=== PATIENT | female | born 1945 | race Caucasian/White ===

== ENCOUNTER 2017-09-02 01:03 | Inpatient (IN) | payer MEDICARE, BC, OTHER ==
[2017-09-02 02:40] VITALS: BP 155/72; PULSE 70; RESP 18; TEMP 97.6; O2SAT 94
[2017-09-02] MEDS ORDERED: diphenhydrAMINE HCL 50 MG/ML VIAL - HS PRN IM (03:15)
[2017-09-02] MEDS ORDERED: IBUPROFEN 600 MG TAB PO PRN (03:15)
[2017-09-02] MEDS ORDERED: diphenhydrAMINE HCL 50 MG CAP - HS PRN PO (03:15)
[2017-09-02 05:52] VITALS: BP 141/69; PULSE 78; RESP 18; TEMP 98.3; O2SAT 96
--- NOTE | 2017-09-02 11:20 | PD.CONS ---
[facility] By Dr. Meneses Reason for Consult Medical management Primary Care Physician Non-Staff Diagnoses: History of Present Illness This is a 72-year-old female who was admitted due to depression to inpatient psychiatry. [facility] consulted for medical management. Patient does not know any of her medical conditions. A very poor historian. She stated that she came from [place] on August 17 with 2 bottles of vodka. When I asked patient if she drinks alcohol everyday she stated no that she just brought it with her but does not usually drink alcohol. When I tried to get more information from patient if she had any medical conditions or why she was here she stated to ask her brother and that he will come soon. She had pain prior but she is was able to walk here so she is no longer in pain. I told me location. She is able to tell me her name. Unable to do review of system secondary to altered mental status. Past Family Social History Allergies: Coded Allergies: Penicillins (Verified Allergy, Severe, 09/02/17) iodine (Verified Allergy, Severe, 09/02/17) moxifloxacin (Verified Allergy, Severe, 09/02/17) Past Medical History Unable to obtain due to patient psychiatric disorder Past Surgical History Unable to obtain due to psychiatric disorder Reported Medications Unable to obtain due to psychiatric disorder. There is no listed home medication. Will put an order for patient's nurse to call pharmacy to obtain her medication list. Active Ordered Medications Current Medications Ibuprofen (Motrin) 600 mg Q6H PRN PO PAIN; Start 09/02/17 at 03:15 Diphenhydramine HCl (Benadryl) 50 mg HS PRN PO INSOMNIA; Start 09/02/17 at 03: 15; Status Future Hold Diphenhydramine HCl (Benadryl Inj) 50 mg HS PRN IM INSOMNIA; Start 09/02/17 at 03:15; Status Future Hold Family History Unable to obtain due to to patient's psychiatric disorder Social History Unable to obtain due to patient's psychiatric disorder. She did say that she was living in [place] and came down here on August 17. Physical Exam Vital Signs Vital Signs Date Time Temp Pulse Resp B/P (MAP) Pulse Ox O2 Delivery O2 Flow Rate FiO2 09/02/17 05:52 98.3 78 18 141/69 (93) 96 1/18/18 02:40 97.6 70 18 155/72 (99 94 Physical Exam GENERAL: This is a well-nourished, well-developed patient, in no apparent distress. SKIN: No rashes, ecchymoses or lesions. Cool and dry. HEAD: Atraumatic. Normocephalic. No temporal or scalp tenderness. EYES: Pupils equal round and reactive. Extraocular motions intact. No scleral icterus. No injection or drainage. ENT: Nose without bleeding, purulent drainage or septal hematoma. Throat without erythema, tonsillar hypertrophy or exudate. Uvula midline. Airway patent. NECK: Trachea midline. No JVD or lymphadenopathy. Supple, nontender, no meningeal signs. CARDIOVASCULAR: Regular rate and rhythm without murmurs, gallops, or rubs. RESPIRATORY: Clear to auscultation. Breath sounds equal bilaterally. No wheezes , rales, or rhonchi. GASTROINTESTINAL: Abdomen soft, non-tender, nondistended. No hepato-splenomegaly , or palpable masses. No guarding. MUSCULOSKELETAL: Extremities without clubbing, cyanosis, or edema. No joint tenderness, effusion, or edema noted. No calf tenderness. Negative Homans sign bilaterally. NEUROLOGICAL: Awake and alert. Cranial nerves II through XII intact. Motor and sensory grossly within normal limits. Five out of 5 muscle strength in all muscle groups. Normal speech. Assessment and Plan Assessment and Plan 72-year-old female who was admitted due to depression Depression -Management per inpatient psychiatrist. Unable to obtain any type of history from patient. There are no medication listed in the EMR system. Patient unable to tell me her medical condition. She is clinically stable with mildly elevated blood pressure. I will obtain basic labs. Placed order for patient's nurse to try to obtain her home medication. Viky Street MD Sep 02, 2017 11:20
[2017-09-02] MEDS ORDERED: diphenhydrAMINE HCL 50 MG CAP PO PRN (11:30)
--- NOTE | 2017-09-02 11:46 | HHI.HP ---
Provisional Diagnosis Admission Date Sep 02, 2017 at 02:40 [place] I. Adjustment disorder with mixed anxiety and depressed mood f 43.23 Certification of Person's Competence To Provide Express and Informed Consent I have personally examined Melida Aguayo , a person being served at [facility] on, Sep 02, 2017 11:31. Express and informed consent means consent voluntarily given in writing, by a competent person, after sufficient explanation and disclosure of the subject matter involved to enable the person to make a knowing and willful decision without any element of force, fraud, deceit, duress, or other form of constraint or coercion. This person is 18 years of age or older, is not now known to be incompetent to consent to treatment with a guardian advocate, and does not have a health care surrogate or proxy currently making medical treatment decisions. I have found this person to be one of the following: [] Competent to provide express and informed consent, as defined above, for voluntary admission to this facility and is competent to provide express and informed consent for treatment. He/she has the consistent capacity to make well reasoned, willful, and knowing decisions concerning his or her medical or mental health treatment. The person fully and consistently understands the purpose of the admission for examination/placement and is fully capable of personally exercising all rights assured under [place] Incompetent to provide express and informed consent to voluntary admission, and this is incompetent to provide express and informed consent to treatment. The person must be transferred to involuntary status and a petition for a guardian advocate filed with the Circuit Court. [xxx] Refusing to provide express and informed consent to voluntary admission but is competent to provide express and informed consent for treatment. The person must be discharged or transferred to involuntary status. Form shall be completed within 24 hours of a person's arrival at the receiving facility and filed in the clinical record of each person: 1. Admitted on a voluntary basis 2. Permitted to provide express and informed consent to his/her own treatment 3. Allowed to transfer from involuntary to voluntary status 4. Prior to permitting a person to consent to his or her own treatment after having been previously found incompetent to consent to treatment. History of Present Illness Capacity: Lacks Capacity (patient lacks capacity to sign for admission, patient has capacity to sign for medications) Psych Chief Complaint: depression with suicidal ideation HPI Patient is a 70-year-old white female comes here under Porter act signed by tony Amaro DO dated 09/01/17 at 7:18 PM stating suicidal ideation states "I want to and drive my car into the pond like my father " the psychiatrist generated at [facility] seen Guillermo. It appears this lady was relocated about 2 weeks ago from [place] to live in a home owned by her brother locally so she may be near him to get care. It appears friends who are helped her in [place] all . Patient is in her own home appear she has some type of a confusional episode became somewhat panicky. Was brought to that ED earlier in the day was seen by psychiatrist, and recommended that her brother take her to will for voluntary admission. Instead it appears he went home to have dinner patient decompensated became more depressed threatening suicidality with some increased anxiety. She was then brought back to [facility] seen Guillermo Porter acted medically cleared and transferred here. It appears urine toxicology was negative for blood alcohol level negative at that facility. At the present time patient laying quietly in her bed on [address] nurse Pily and counselor Trinity present throughout session. Patient is alert oriented calm white female appears about her stated age. She did state she lost all her support group and [place]. Also importance she said she did not fall some time prior to that fractured her left patella leading her to be given some significant amounts of various opiates. She ran out of those and discontinued them around August 17 of this year when she moved down here to be closer to her brother. Some of this confusion depression and anxiety occurred subsequent to that. Patient denies any prior psychiatric contact hospitalizations a psychotropic medications. She denies any alcohol or drug use. Denies any physical or sexual abuse as a child and adult. She states her mother had some type of a mental illness. She states she has been twice and has no children. 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 At this time she does denies suicidality homicidality voices or visions. As mentioned she is oriented in all 4 spheres. At this time I feel patient doesn't meet criteria for further observation and assessment and also need verification of above history from patient's brother. I do not feel there is necessary at this time though to start any psychotropic medications. She does deny being depressed at this time. And her mood appears more euthymic with good range and intensity of her affect. We will have hospitalist also consult with us with this lady Hopeless to be a short stay and return her to her local home. Review of Systems Constitutional: DENIES: Diaphoretic episodes, Fatigue, Fever, Weight gain, Weight loss, Chills, Dizziness, Change in appetite, Night Sweats Endocrine: DENIES: Abnorml menstrual pattern, Heat/cold intolerance, Polydipsia , Polyuria, Polyphagia Eyes: DENIES: Blurred vision, Diplopia, Eye inflammation, Eye pain, Vision loss , Photosensitivity, Double Vision Ears, nose, mouth, throat: DENIES: Tinnitus, Hearing loss, Vertigo, Nasal discharge, Oral lesions, Throat pain, Hoarseness, Ear Pain, Running Nose, Epistaxis, Sinus Pain, Toothache, Odynophagia Respiratory: DENIES: Apneas, Cough, Snoring, Wheezing, Hemoptysis, Sputum production, Shortness of breath Cardiovascular: DENIES: Chest pain, Palpitations, Syncope, Dyspnea on Exertion , PND, Lower Extremity Edema, Orthopnea, Claudication Gastrointestinal: DENIES: Abdominal pain, Black stools, Bloody stools, Constipation, Diarrhea, Nausea, Vomiting, Difficulty Swallowing, Anorexia Genitourinary: DENIES: Abnormal vaginal bleeding, Dysmenorrhea, Dyspareunia, Sexual dysfunction, Urinary frequency, Urinary incontinence, Urgency, Hematuria , Dysuria, Nocturia, Vaginal discharge Musculoskeletal: DENIES: Joint pain, Muscle aches, Stiffness, Joint Swelling, Back pain, Neck pain Integumentary: DENIES: Abnormal pigmentation, Pruritus, Rash, Nail changes, Breast masses, Breast skin changes, Nipple discharge Hematologic/lymphatic: DENIES: Bruising, Lymphadenopathy Immunologic/allergic: DENIES: Eczema, Urticaria Neurologic: DENIES: Abnormal gait, Headache, Localized weakness, Paresthesias, Seizures, Speech Problems, Tremor, Poor Balance Psychiatric: COMPLAINS OF: Anxiety, Depression (mild mild), Suicidal Ideation ( denies) Past Psych History Psychological trauma history Denies physical or sexual abuse Violence risk - others (6 mos) Low Violence risk - self (6 mos) Low Substance Abuse History Drugs/Alcohol past 12 months Denies Past Family Social History Coded Allergies: Penicillins (Verified Allergy, Severe, 09/02/17) iodine (Verified Allergy, Severe, 09/02/17) moxifloxacin (Verified Allergy, Severe, 09/02/17) Current Medications Medications (Trade) Dose Ordered Sig/Porsche Route Start Time Stop Time Status Last Admin (Motrin) 600 mg Q6H PRN PO 09/02/17 03:15 (Benadryl) 50 mg HS PRN PO 09/02/17 03:15 Future Hold (Benadryl Inj) 50 mg HS PRN IM 09/02/17 03:15 Future Hold Family Psych History States mother had some type of mental health issues Social History Patient twice has no children Patient's Strengths (min. 2) Patient verbal label axis health care is cooperative Physical Exam He should medically cleared [facility] seen [place] seen at the present time patient resting quietly in her bed she is in no acute distress, no respiratory distress, but with some abdominal pain. He moves all 4 extremities or difficulty allow is unable to ascertain her ambulatory status with her laying in bed. We will have PT assess her Vital Signs Vital Signs Date Time Temp Pulse Resp B/P (MAP) Pulse Ox O2 Delivery O2 Flow Rate FiO2 09/02/17 05:52 98.3 78 18 141/69 (93) 96 Mental Status Examination Appearance: Appropriate Consciousness: Alert Orientation: Person, Place, Date/Time, Situation Motor Activity: Other (patient laying in bed unable to assess) Speech: Unremarkable Language: Adequate Fund of Knowledge: Adequate Attention and Concentration: Adequate Memory: Unremarkable (fair) Mood: Other (euthymic to mildly dysphoric) Affect: Other (slight decreased range and intensity) Thought Process & Associations: Intact, Disorganized (minimally) Thought Content: Appropriate Hallucination Type: None Delusion Type: None Suicidal Ideation: No (denies) Suicidal Plan: No Suicidal Intention: No (denies) Homicidal Ideation: No Homicidal Plan: No Homicidal Intention: No Insight: Adequate Judgment: Adequate Assessment & Plan Problem List: (1) Adjustment disorder with mixed anxiety and depressed mood ICD Codes: F43.23 - Adjustment disorder with mixed anxiety and depressed mood Assessment & Plan Estimated LOS: 3-5 days patient appears calm and cooperative. His overall oriented. He did need further verification from family as her mental status also. For now she does meet criteria for further assessment of the Porter act I' ll do first opinion request second opinion either from she does have capacity to sign for medications and treatment. No recommendation for medication at this time. Will have hospitalist also consulted with us Discharge Planning To return to her own home Request HC Surrog/Guard Advoc?: No Landen Meneses MD Sep 02, 2017 11:46
--- NOTE | 2017-09-02 13:56 | PD.PSY.CON ---
Provisional Diagnosis Admission Date Sep 02, 2017 at 02:40 [place] I. Adjustment disorder with mixed anxiety and depressed mood f 43.23 History of Present Illness Service Psychiatry Consult Requested By Dr. Meneses Reason for Consult Second opinion Primary Care Physician Non-Staff HPI Patient is a 70-year-old white female comes here under Porter act signed by a Rubén Amaro DO dated 09/01/17 at 7:18 PM stating suicidal ideation states "I want to and drive my car into the pond like my father " the psychiatrist generated at [facility] seen Guillermo. It appears this lady was relocated about 2 weeks ago from [place] to live in a home owned by her brother locally so she may be near him to get care. It appears friends who are helped her in [place] all . Patient is in her own home appear she has some type of a confusional episode became somewhat panicky. Was brought to that ED earlier in the day was seen by psychiatrist, and recommended that her brother take her to will for voluntary admission. Instead it appears he went home to have dinner patient decompensated became more depressed threatening suicidality with some increased anxiety. She was then brought back to [facility] seen Guillermo Porter acted medically cleared and transferred here. It appears urine toxicology was negative for blood alcohol level negative at that facility. At the present time patient laying quietly in her bed on 2500 nurse Pily and counselor Trinity present throughout session. Patient is alert oriented calm white female appears about her stated age. She did state she lost all her support group and [place]. Also importance she said she did not fall some time prior to that fractured her left patella leading her to be given some significant amounts of various opiates. She ran out of those and discontinued them around August 17 of this year when she moved down here to be closer to her brother. Some of this confusion depression and anxiety occurred subsequent to that. Patient denies any prior psychiatric contact hospitalizations a psychotropic medications. She denies any alcohol or drug use. Denies any physical or sexual abuse as a child and adult. She states her mother had some type of a mental illness. She states she has been twice and has no children. 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 At this time she does denies suicidality homicidality voices or visions. As mentioned she is oriented in all 4 spheres. At this time I feel patient doesn't meet criteria for further observation and assessment and also need verification of above history from patient's brother. I do not feel there is necessary at this time though to start any psychotropic medications. She does deny being depressed at this time. And her mood appears more euthymic with good range and intensity of her affect. We will have hospitalist also consult with us with this lady Hopeless to be a short stay and return her to her local home. The patient is a 70 year old woman, who lives alone is an Guillermo, she is , retired, she denies previous psychiatric history, she denies previous psychiatric hospitalizations, hospitalized due to suicidal ideation. Consulted to me for second opinion. My evaluation the patient is calm, cooperative, he says that she recently moved to [place] from [place] and she has been very confused. Patient says that she doesn't really remember the recent she is in the hospital. She says that she has been taking her medication as prescribed, she does not know the reason she became so confused. At this moment she denies suicidal and homicidal ideation, she denies visual and auditory hallucinations. Patient is oriented in person, just partially oriented in time and place. No agitation, no aggressive behavior reported. Review of Systems Constitutional: DENIES: Diaphoretic episodes, Fatigue, Fever, Weight gain, Weight loss, Chills, Dizziness, Change in appetite, Night Sweats Endocrine: DENIES: Abnorml menstrual pattern, Heat/cold intolerance, Polydipsia , Polyuria, Polyphagia Eyes: DENIES: Blurred vision, Diplopia, Eye inflammation, Eye pain, Vision loss , Photosensitivity, Double Vision Ears, nose, mouth, throat: DENIES: Tinnitus, Hearing loss, Vertigo, Nasal discharge, Oral lesions, Throat pain, Hoarseness, Ear Pain, Running Nose, Epistaxis, Sinus Pain, Toothache, Odynophagia Respiratory: DENIES: Apneas, Cough, Snoring, Wheezing, Hemoptysis, Sputum production, Shortness of breath Cardiovascular: DENIES: Chest pain, Palpitations, Syncope, Dyspnea on Exertion , PND, Lower Extremity Edema, Orthopnea, Claudication Gastrointestinal: DENIES: Abdominal pain, Black stools, Bloody stools, Constipation, Diarrhea, Nausea, Vomiting, Difficulty Swallowing, Anorexia Genitourinary: DENIES: Abnormal vaginal bleeding, Dysmenorrhea, Dyspareunia, Sexual dysfunction, Urinary frequency, Urinary incontinence, Urgency, Hematuria , Dysuria, Nocturia, Vaginal discharge Musculoskeletal: DENIES: Joint pain, Muscle aches, Stiffness, Joint Swelling, Back pain, Neck pain Integumentary: DENIES: Abnormal pigmentation, Pruritus, Rash, Nail changes, Breast masses, Breast skin changes, Nipple discharge Hematologic/lymphatic: DENIES: Bruising, Lymphadenopathy Immunologic/allergic: DENIES: Eczema, Urticaria Psychiatric: DENIES: Anxiety, Confusion, Mood changes, Depression, Hallucinations, Agitation, Suicidal Ideation, Homicidal Ideation, Delusions Except as stated in HPI: all other systems reviewed are Neg Past Family Social History Coded Allergies: Penicillins (Verified Allergy, Severe, 09/02/17) iodine (Verified Allergy, Severe, 09/02/17) moxifloxacin (Verified Allergy, Severe, 09/02/17) Reported Medications Metaxalone (Skelaxin) 800 Mg Tablet, 800 09/02/[address] (Nexium) 20 Mg Capdr, 20 MG PO DAILY, CAP 0 Refills 09/02/17 Ranitidine (Zantac) 150 Mg Tab, 150 MG PO BID, #60 TAB 0 Refills 09/02/17 Current Medications Medications (Trade) Dose Ordered Sig/Porsche Route Start Time Stop Time Status Last Admin (Motrin) 600 mg Q6H PRN PO 09/02/17 03:15 (Benadryl) 50 mg HS PRN PO 09/02/17 03:15 Future Hold (Benadryl Inj) 50 mg HS PRN IM 09/02/17 03:15 Future Hold (Benadryl) 50 mg HS PRN PO 09/02/17 11:30 (Atarax) 50 mg Q6H PRN PO 09/02/17 11:30 Patient's Strengths (min. 2) Patient verbal label axis health care is cooperative Physical Exam Vital Signs Vital Signs Date Time Temp Pulse Resp B/P (MAP) Pulse Ox O2 Delivery O2 Flow Rate FiO2 09/02/17 05:52 98.3 78 18 141/69 (93) 96 Lab Results Test 09/02/17 13:32 Mental Status Examination Appearance: Appropriate Consciousness: Alert Orientation: Person, Place, Date/Time, Situation Motor Activity: Other (patient laying in bed unable to assess) Speech: Unremarkable Language: Adequate Fund of Knowledge: Adequate Attention and Concentration: Adequate Memory: Unremarkable (fair) Mood: Other (euthymic to mildly dysphoric) Affect: Other (slight decreased range and intensity) Thought Process & Associations: Intact, Disorganized (minimally) Thought Content: Appropriate Hallucination Type: None Delusion Type: None Suicidal Ideation: No (denies) Suicidal Plan: No Suicidal Intention: No (denies) Homicidal Ideation: No Homicidal Plan: No Homicidal Intention: No Insight: Adequate Judgment: Adequate Assessment & Plan Problem List: (1) Adjustment disorder with mixed anxiety and depressed mood ICD Codes: F43.23 - Adjustment disorder with mixed anxiety and depressed mood Assessment & Plan: I have seen and examined this patient. Reviewed the documentation. I agree and concur with Dr. Meneses's assessment and plan. Assessment & Plan Estimated LOS: days Request HC Surrog/Guard Advoc?: No Zachariah Porras MD Sep 02, 2017 13:56
[2017-09-02 13:57] LABS: AUTOMATED NEUTROPHIL # 3.1 TH/MM3 (1.8-7.7); BASOPHIL % 0.7 % (0.0-2.0); EOSINOPHIL # 0.1 TH/MM3 (0-0.4); EOSINOPHIL % 1.7 % (0.0-4.0); HEMATOCRIT 38.3 % (35.0-46.0); LYMPH % 27.8 % (9.0-44.0); LYMPHOCYTE # 1.4 TH/MM3 (1.0-4.8); MEAN CELL VOLUME 92.6 FL (80.0-100.0); MEAN CORPUSCULAR HEMOGLOBIN 31.3 PG (27.0-34.0); MEAN CORPUSCULAR HGB CONC 33.8 % (32.0-36.0); MEAN PLATELET VOLUME 7.9 FL (7.0-11.0); MONO % 8.5 % (0.0-8.0); MONOCYTE # 0.4 TH/MM3 (0-0.9); NEUT % 61.3 % (16.0-70.0); PLATELET COUNT 208 TH/MM3 (150-450); RED BLOOD COUNT 4.14 MIL/MM3 (4.00-5.30); RED CELL DISTRIBUTION WIDTH 14.9 % (11.6-17.2); WHITE BLOOD COUNT 5.1 TH/MM3 (4.0-11.0)
[2017-09-02 14:16] LABS: ALBUMIN 3.3 GM/DL (3.4-5.0); AST (GOT) 28 U/L (15-37); BICARBONATE 21.7 MEQ/L (21.0-32.0); BLOOD UREA NITROGEN 9 MG/DL (7-18); CALCIUM 8.5 MG/DL (8.5-10.1); CHLORIDE 110 MEQ/L (98-107); CREATININE 0.36 MG/DL (0.50-1.00); GLOMERULAR FILTRATION RATE 177 ML/MIN (>89); GLUCOSE,RANDOM 89 MG/DL (74-106); SODIUM (NA) 142 MEQ/L (136-145)
[2017-09-02 14:26] LABS: ALKALINE PHOSPHATASE 90 U/L (45-117); ALT (GPT) 33 U/L (10-53); TOTAL BILIRUBIN ADULT 0.4 MG/DL (0.2-1.0); TOTAL PROTEIN 5.9 GM/DL (6.4-8.2)
[2017-09-02] MEDS ORDERED: META800 (16:16)
[2017-09-02] MEDS ORDERED: ZANT150T2 PO (16:16)
[2017-09-02] MEDS ORDERED: NEXI20CA PO (16:16)
[2017-09-02 17:55] VITALS: BP 141/66; PULSE 74; RESP 16; TEMP 97.6; O2SAT 97
[2017-09-02] MEDS: hydrOXYzine HCL 50 MG TAB PO PRN (22:20)
[2017-09-03 05:32] VITALS: BP 118/58; PULSE 62; RESP 16; TEMP 98.1; O2SAT 95
[2017-09-03] MEDS: hydrOXYzine HCL 50 MG TAB PO PRN (10:14)
[2017-09-03] MEDS ORDERED: HYDR50TA94 PO (11:39)
--- NOTE | 2017-09-03 11:46 | HHI.DS ---
Psychiatry Discharge Summary Inpatient Psychiatric care?: Yes Advance Directive: No Reason Not Provided: unknown if have one Mental Health AdvanceDirective: No Health Care Proxy: No Admission Admission Date Sep 02, 2017 at 02:40 Admission Diagnosis: (1) Adjustment disorder with mixed anxiety and depressed mood ICD Code: F43.23 - Adjustment disorder with mixed anxiety and depressed mood Brief History Patient is a 70-year-old white female comes here under [place] act signed by a Rubén Amaro DO dated 09/01/17 at 7:18 PM stating suicidal ideation states "I want to and drive my car into the pond like my father " the psychiatrist generated at [facility] seen [place]. It appears this lady was relocated about 2 weeks ago from [place] to live in a home owned by her brother locally so she may be near him to get care. It appears friends who are helped her in [place] all . Patient is in her own home appear she has some type of a confusional episode became somewhat panicky. Was brought to that ED earlier in the day was seen by psychiatrist, and recommended that her brother take her to [facility] for voluntary admission. Instead it appears he went home to have dinner patient decompensated became more depressed threatening suicidality with some increased anxiety. She was then brought back to [facility] seen Guillermo Porter acted medically cleared and transferred here. It appears urine toxicology was negative for blood alcohol level negative at that facility. At the present time patient laying quietly in her bed on 2500 nurse Pily and counselor Trinity present throughout session. Patient is alert oriented calm white female appears about her stated age. She did state she lost all her support group and [place]. Also importance she said she did not fall some time prior to that fractured her left patella leading her to be given some significant amounts of various opiates. She ran out of those and discontinued them around August 17 of this year when she moved down here to be closer to her brother. Some of this confusion depression and anxiety occurred subsequent to that. Patient denies any prior psychiatric contact hospitalizations a psychotropic medications. She denies any alcohol or drug use. Denies any physical or sexual abuse as a child and adult. She states her mother had some type of a mental illness. She states she has been twice and has no children. 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 At this time she does denies suicidality homicidality voices or visions. As mentioned she is oriented in all 4 spheres. At this time I feel patient doesn't meet criteria for further observation and assessment and also need verification of above history from patient's brother. I do not feel there is necessary at this time though to start any psychotropic medications. She does deny being depressed at this time. And her mood appears more euthymic with good range and intensity of her affect. We will have hospitalist also consult with us with this lady Hopeless to be a short stay and return her to her local home. The patient is a 70 year old woman, who lives alone is an [place], she is , retired, she denies previous psychiatric history, she denies previous psychiatric hospitalizations, hospitalized due to suicidal ideation. Consulted to me for second opinion. My evaluation the patient is calm, cooperative, he says that she recently moved to [place] from [place] and she has been very confused. Patient says that she doesn't really remember the recent she is in the hospital. She says that she has been taking her medication as prescribed, she does not know the reason she became so confused. At this moment she denies suicidal and homicidal ideation, she denies visual and auditory hallucinations. Patient is oriented in person, just partially oriented in time and place. No agitation, no aggressive behavior reported. Tobacco Use In Past 30 Days: Cognitive Impairment Alcohol Use: Never Hospital Course Patient's hospital course was uneventful, her anxiety and mood did stabilize with the milieu and safety of the unit. Patient seen today denying suicidality homicidality voices or visions acknowledges a temporary response that she had to the new placement. The strength medications the patient's family they feel she is also ready to return home. Thus patient will be discharged today to herself. She denies suicidality homicidality voices or visions. There is no psychotropic medications daughter will give her Vistaril 50 mg #15 for anxiety with no refills she may follow-up with her PCP Results Blood Pressure 118 / 58 Vital Signs Date Time Temp Pulse Resp B/P (MAP) Pulse Ox O2 Delivery O2 Flow Rate FiO2 09/03/17 05:32 98.1 62 16 118/58 (78) 95 Laboratory Tests Test 09/02/17 13:32 Monocytes (%) (Auto) 8.5 % (0.0-8.0) Creatinine 0.36 MG/DL (0.50-1.00) Total Protein 5.9 GM/DL (6.4-8.2) Albumin 3.3 GM/DL (3.4-5.0) Chloride Level 110 MEQ/L (98-107) Summary of Procedures None done Pending results at discharge: No Medications # of Antipsychotic meds at D/C: 0 Approp Antipsych med options 1 - Minimum of three failed multiple trials of monotherapy. 2 - Documented plan to taper to monotherapy due to previous use of multiple meds OR cross-taper in progress at D/C. 3 - Documentation of augmentation of Clozapine. 4 - Justification other than those listed in allowable values 1-3, document here : Discharge Discharge Date: Sep 03, 2017 Discharge Diagnosis: (1) Adjustment disorder with mixed anxiety and depressed mood ICD Code: F43.23 - Adjustment disorder with mixed anxiety and depressed mood Pt Condition on Discharge: Stable Discharge Disposition: Discharge Home Discharge Instructions Diet Instructions: As Tolerated, No Restrictions Activities you can perform: Regular-No Restrictions Scheduled Appointment: PCP dr Crowley Appointment Date: Sep 15, 2017 Appointment Time: 12:00pm Discharge Time > 30 minutes Mental Status Examination Appearance: Appropriate Consciousness: Alert Orientation: Person, Place, Date/Time, Situation Motor Activity: Other (patient laying in bed unable to assess) Speech: Unremarkable Language: Adequate Fund of Knowledge: Adequate Attention and Concentration: Adequate Memory: Unremarkable (fair) Mood: Other (euthymic to mildly dysphoric) Affect: Other (slight decreased range and intensity) Thought Process & Associations: Intact, Disorganized (minimally) Thought Content: Appropriate Hallucination Type: None Delusion Type: None Suicidal Ideation: No (denies) Suicidal Plan: No Suicidal Intention: No (denies) Homicidal Ideation: No Homicidal Plan: No Homicidal Intention: No Insight: Adequate Judgment: Adequate Discharge/Advance Care Plan Health Problems: (1) Adjustment disorder with mixed anxiety and depressed mood Goals to promote your health * To prevent worsening of your condition and complications * To maintain your health at the optimal level Directions to meet your goals Take your medications as prescribed Follow your dietary instruction Follow activity as directed Keep your appointments as scheduled Take your immunizations and boosters as scheduled If your symptoms worsen call your PCP, if no PCP go to Urgent Care Center or Emergency Room For 08/03 questions related to your inpatient stay or results of tests pending at discharge, please contact Dr. Landen Meneses at Smoking is Dangerous to Your Health. Avoid second hand smoking Landen Meneses MD Sep 03, 2017 11:46
== END 2017-09-03 16:15 | disposition home or self-care (01) | DRG 882 ==
LOC: H250 02:40
PROVIDERS: ADMIT Psychiatry & Neurology Psychiatry; ATTEND Psychiatry & Neurology Psychiatry
DX: F43.23 Adjustment disorder with mixed anxiety and depressed mood (principal); R45.851 Suicidal ideations; Z88.1 Allergy status to other antibiotic agents; Z88.0 Allergy status to penicillin
CPT/HCPCS: 80053; 84443; 85025

== ENCOUNTER 2017-10-02 22:23 | Inpatient (IN) | payer MEDICARE, BC ==
[~2017-10-02] VITALS: Ht 154.9 cm; Wt 60.9 kg
[~2017-10-02 22:23] MED LIST: HYDR50TA94 PO; META800; NEXI20CA PO; ZANT150T2 PO
[2017-10-03 02:16] VITALS: BP 145/73; PULSE 84; RESP 22; TEMP 98.2; O2SAT 96
[2017-10-03] MEDS ORDERED: LORazepam 0.5 MG TAB age > 65 yrs PO PRN (03:45)
[2017-10-03] MEDS ORDERED: LORazepam 2 MG/ML VIAL - age > 65 yrs IM PRN (03:45)
[2017-10-03] MEDS ORDERED: ALUMINUM/MAGNESIUM/SIMETH 30 ML CUP PO PRN ×2 (03:45→13:15)
[2017-10-03] MEDS ORDERED: MAGNESIUM HYDROXIDE SUSP 30 ML CUP PO PRN ×2 (03:45→13:15)
[2017-10-03] MEDS ORDERED: diphenhydrAMINE HCL 50 MG/ML VIAL - HS PRN IM (03:45)
[2017-10-03] MEDS ORDERED: ACETAMINOPHEN 325 MG TAB PO PRN ×2 (03:45→13:15)
[2017-10-03 05:41] VITALS: BP 123/57; PULSE 81; RESP 22; TEMP 97.6
[2017-10-03] MEDS: NICOTINE 21 MG/24 HR PATCH T-DERMAL SCH (09:00)
[2017-10-03] MEDS ORDERED: hydrOXYzine HCL 50 MG TAB PO PRN (13:15)
--- NOTE | 2017-10-03 13:25 | HHI.HP ---
Provisional Diagnosis Admission Date Oct 03, 2017 at 01:27 [place] I. Psychotic episode f 23 Certification of Person's Competence To Provide Express and Informed Consent I have personally examined Melida Aguayo , a person being served at [facility] [place] on, Oct 03, 2017 13:12. Express and informed consent means consent voluntarily given in writing, by a competent person, after sufficient explanation and disclosure of the subject matter involved to enable the person to make a knowing and willful decision without any element of force, fraud, deceit, duress, or other form of constraint or coercion. This person is 18 years of age or older, is not now known to be incompetent to consent to treatment with a guardian advocate, and does not have a health care surrogate or proxy currently making medical treatment decisions. I have found this person to be one of the following: [] Competent to provide express and informed consent, as defined above, for voluntary admission to this facility and is competent to provide express and informed consent for treatment. He/she has the consistent capacity to make well reasoned, willful, and knowing decisions concerning his or her medical or mental health treatment. The person fully and consistently understands the purpose of the admission for examination/placement and is fully capable of personally exercising all rights assured under [place] Incompetent to provide express and informed consent to voluntary admission, and this is incompetent to provide express and informed consent to treatment. The person must be transferred to involuntary status and a petition for a guardian advocate filed with the Circuit Court. [] Refusing to provide express and informed consent to voluntary admission but is competent to provide express and informed consent for treatment. The person must be discharged or transferred to involuntary status. Form shall be completed within 24 hours of a person's arrival at the receiving facility and filed in the clinical record of each person: 1. Admitted on a voluntary basis 2. Permitted to provide express and informed consent to his/her own treatment 3. Allowed to transfer from involuntary to voluntary status 4. Prior to permitting a person to consent to his or her own treatment after having been previously found incompetent to consent to treatment. History of Present Illness Capacity: Lacks Capacity HPI Patient is 72-year-old white female known to me from prior admission 09/02/17 through 09/03/17 visit [id number] pressure seen, a contact with family appears return to her apartment with her children. This episode patient was initially brought to [facility] under Porter act by the [place] [employer] dated 10/02/17 at 1534 hrs. that document reviewed and is essentially stating that Melida appears to be unable to determine if she needs care or treatment by medical clinic manager Melida's home was a complete mess with Food and feces all over the house. Melida appeared to be talking to people and about things that were not there during my encounter with her Melida appeared to be unable to care for herself and her home. Melida thought my patrol vehicle was another vehicle and that people were around that were not. Melida's brother arrived on scene to her residence because she was not answering her phone her brother advised that she is not eating and not caring for herself and rambling on about slavery and something to do with "22 seconds" Melida continued to ramble on about various things and people that are not around. Patient seen screen at that facility transferred here under Porter act once medically cleared. Patient seen at the present time in her room with nurse Edith. Patient laying flat on her back to the bed babbling nonsense phrases her eyes wide open she is reaching up over her abdomen with her arms extended straight in the hands grasping and space as if reaching for something. Patient showing no response to my questions. She will grab my hand inside take it close and put it in her hand. Otherwise there is no response to my questions. At this time patient meets criteria for involuntary psychiatric hospitalization on the Porter act I'll do first opinion request second opinion. I feel she does not capacity as for healthcare surrogate and guardian advocate need to contact patient's family get further information helpless with treatment. We will continue hospitalist consult was also. Will refrain from any antipsychotics at this time and further monitor behavior Review of Systems ROS Limitations: Clinical Condition, Altered Mental Status Past Psych History Psychological trauma history Unknown at this time Violence risk - others (6 mos) Unknown at this time Violence risk - self (6 mos) Unknown at this time Substance Abuse History Drugs/Alcohol past 12 months Unknown at this time Past Family Social History Coded Allergies: Penicillins (Verified Allergy, Severe, 09/02/17) iodine (Verified Allergy, Severe, 09/02/17) moxifloxacin (Verified Allergy, Severe, 09/02/17) Active Scripts Hydroxyzine HCl (Hydroxyzine HCl) 50 Mg Tab, 50 MG PO Q6H Y for ANXIETY, #15 TAB 0 Refills Prov:Landen Meneses MD 09/03/17 Reported Medications Metaxalone (Skelaxin) 800 Mg Tablet, 800 09/02/[address] (Nexium) 20 Mg Capdr, 20 MG PO DAILY, CAP 0 Refills 09/02/17 Ranitidine (Zantac) 150 Mg Tab, 150 MG PO BID, #60 TAB 0 Refills 09/02/17 Current Medications Medications (Trade) Dose Ordered Sig/Porsche Route Start Time Stop Time Status Last Admin (Atarax) 50 mg Q6H PRN PO 10/03/17 03:45 (Benadryl) 50 mg HS PRN PO 10/03/17 03:45 (Tylenol) 650 mg Q4H PRN PO 10/03/17 03:45 (Milk Of Magnesia Liq) 30 ml DAILY PRN PO 10/03/17 03:45 (Mag-Al Plus Susp Liq) 30 ml Q6H PRN PO 10/03/17 03:45 (Habitrol 21 Mg Patch.24 Hr) 1 patch DAILY T-DERMAL 10/03/17 09:00 Miscellaneous Information 1 HS T-DERMAL 10/03/17 21:00 (Tylenol) 650 mg Q4H PRN PO 10/03/17 13:15 UNV (Milk Of Magnesia Liq) 30 ml DAILY PRN PO 10/03/17 13:15 UNV (Mag-Al Plus Susp Liq) 30 ml Q6H PRN PO 10/03/17 13:15 UNV (Atarax) 50 mg Q6H PRN PO 10/03/17 13:15 UNV Family Psych History Unknown at this time Social History Patient lives by herself in a supportive family Patient's Strengths (min. 2) Supportive family Physical Exam Patient medically cleared [facility] Vital Signs Vital Signs Date Time Temp Pulse Resp B/P (MAP) Pulse Ox O2 Delivery O2 Flow Rate FiO2 10/03/17 05:41 97.6 81 22 123/57 (79) 10/03/17 02:16 96 I/O 10/03/17 10/03/17 10/04/17 08:00 16:00 00:00 Intake Total 0 ml Balance 0 ml Mental Status Examination Appearance: Disheveled Consciousness: Alert Motor Activity: Other Speech: Other (incomprehensible babbling) Language: Other Fund of Knowledge: Poor (very poor) Attention and Concentration: Other (poor) Memory: Impaired Mood: Other (childlike in incongruent) Affect: Other (slight increase range intensity) Thought Process & Associations: Other (Ardley disorganized) Thought Content: Other (ocular disorganized) Hallucination Type: Other (patient may be suffering visual hallucinations that she is grabbing at the air also may be responding to internal stimuli) Delusion Type: Other (difficult to ascertain at this time) Suicidal Ideation: No Suicidal Plan: No Suicidal Intention: No Homicidal Ideation: No Homicidal Plan: No Homicidal Intention: No Insight: Poor Judgment: Poor Assessment & Plan Problem List: (1) Psychotic episode ICD Codes: F23 - Brief psychotic disorder Assessment & Plan Estimated LOS: 7 days at this time patient meets criteria for involuntary psychiatric hospitalization of the Porter act I'll do first opinion request second opinion. A full she does not have capacity also ask for healthcare surrogate and guardian advocate. Hospitalist consult of us. Need to contact patient's family if further information helpless work with placement issues and treatment Discharge Planning To be determined Request HC Surrog/Guard Advoc?: Yes Landen Meneses MD Oct 03, 2017 13:25
--- NOTE | 2017-10-03 15:05 | PD.CONS ---
HPI Service [facility] Hospitalists Consult Requested By Psychiatry team, Dr. Meneses Reason for Consult Medical management Primary Care Physician Unknown Diagnoses: History of Present Illness Patient is a 72-year-old female with no known medical history who came in initially to [facility] in [place] under Porter act by the [place] [employer]. Per review of records Police Department is documented that the patient appears to be unable to determine if she needs care or treatment by pesticide use medical coordinator as her home was a complete mess with food and feces all over the house. She was transferred to [place]. She is now admitted to inpatient psychiatry unit for further evaluation. Consulted for medical management. Patient was seen and examined today in her room. Patient was found laying in bed saying "tweet tweet" repetitively. Unable to answer questions or follow commands. Patient sat up, extending both arms outward and continues to repetitively say " tweet tweet." She continues to stand up and sit back down but does not stop saying "tweet tweet." She lays back in bed and started to mumble incomprehensible words and sound. As per nurse, patient has not been very good historian and unable to cooperate with care. Review of Systems ROS Limitations: Psychotic, Poor Historian Past Family Social History Allergies: Coded Allergies: Penicillins (Verified Allergy, Severe, 09/02/17) iodine (Verified Allergy, Severe, 09/02/17) moxifloxacin (Verified Allergy, Severe, 09/02/17) Past Medical History Unknown, unable to provide information Past Surgical History Unknown, unable to provide information Reported Medications Reported Meds & Active Scripts Active Hydroxyzine HCl 50 Mg Tab 50 Mg PO Q6H PRN Reported Skelaxin (Metaxalone) 800 Mg Tablet 800 Nexium (Esomeprazole DR) 20 Mg Capdr 20 Mg PO DAILY Zantac (Ranitidine HCl) 150 Mg Tab 150 Mg PO BID Active Ordered Medications Current Medications Medications (Trade) Dose Ordered Sig/Porsche Route Start Time Stop Time Status Last Admin (Atarax) 50 mg Q6H PRN PO 10/03/17 03:45 (Benadryl) 50 mg HS PRN PO 10/03/17 03:45 (Tylenol) 650 mg Q4H PRN PO 10/03/17 03:45 (Milk Of Magnesia Liq) 30 ml DAILY PRN PO 10/03/17 03:45 (Mag-Al Plus Susp Liq) 30 ml Q6H PRN PO 10/03/17 03:45 (Habitrol 21 Mg Patch.24 Hr) 1 patch DAILY T-DERMAL 10/03/17 09:00 Miscellaneous Information 1 HS T-DERMAL 10/03/17 21:00 Family History Unable to obtain information Social History Unable to obtain any information Physical Exam Vital Signs Vital Signs Date Time Temp Pulse Resp B/P (MAP) Pulse Ox O2 Delivery O2 Flow Rate FiO2 10/03/17 05:41 97.6 81 22 123/57 (79) 10/03/17 02:16 98.2 84 22 145/73 (97) 96 Physical Exam GENERAL: This is a thin-appearing, well-developed patient, in no apparent distress. SKIN: Cool and dry. Pale HEAD: Normocephalic. EYES: Pupils equal round and reactive. No scleral icterus. No injection or drainage. ENT: Nose without bleeding. Airway patent. NECK: Trachea midline. CARDIOVASCULAR: Regular rate and rhythm without murmurs, gallops, or rubs. RESPIRATORY: Diminished bases. No wheezes, rales, or rhonchi. GASTROINTESTINAL: Abdomen soft, non-tender, nondistended. MUSCULOSKELETAL: Extremities without clubbing, cyanosis, or edema. NEUROLOGICAL: Awake and alert. Patient does not respond to any questions or commands. Echolalia. Assessment and Plan Problem List: (1) Psychotic episode ICD Code: F23 - Brief psychotic disorder (2) Adjustment disorder with mixed anxiety and depressed mood ICD Code: F43.23 - Adjustment disorder with mixed anxiety and depressed mood Assessment and Plan Patient is a 72-year-old female with no known medical history who came in initially to [facility] in [place] under Porter act by the [place] [employer]. She is now admitted to inpatient psychiatry unit for further evaluation. Consulted for medical management. Psychosis - Echolalia - Managed by psychiatry team Medical Management - Per review of records from previous admission her labs were unremarkable. We'll repeat labs - CBC, CMP, TSH, UA, vitamin D, vitamin B12 - Vital signs trend within normal possible elevation secondary to psychosis Altered MS - Will do CT - Neurology consult placed by primary team DVT prop early ambulation Code Status Full code Discussed Condition With Discussed with nursing Clyde Lee Oct 03, 2017 15:05
[2017-10-03 18:05] VITALS: BP 111/55; PULSE 60; RESP 18; TEMP 97.6; O2SAT 97
[2017-10-03] MEDS: REMOVE OLD NICOTINE PATCH T-DERMAL SCH (20:16)
--- NOTE | 2017-10-03 20:27 | RADRPT ---
EXAM DATE/TIME: 10/03/2017 19:48 [place] COMPARISON: No previous studies available for comparison. INDICATIONS : Altered mental status. RADIATION DOSE: 38.11 CTDIvol (mGy) MEDICAL HISTORY : Diabetes mellitus type 2. SURGICAL HISTORY : None. ENCOUNTER: Initial ACUITY: 1 day PAIN SCALE: Non-responsive LOCATION: cranial TECHNIQUE: Multiple contiguous axial images were obtained of the head. Using automated exposure control and adj ustment of the mA and/or kV according to patient size, radiation dose was kept as low as reasonably a chievable to obtain optimal diagnostic quality images. DICOM format image data is available electro nically for review and comparison. FINDINGS: CEREBRUM: There is mild cerebral atrophy. Ventricles are normal in size. No evidence of midline shift, mass le daphne, hemorrhage or acute infarction. No extra-axial fluid collections are seen. POSTERIOR FOSSA: The cerebellum and brainstem are intact. The 4th ventricle is midline. The cerebellopontine angle i s unremarkable. EXTRACRANIAL: The visualized portion of the orbits is intact. SKULL: The calvaria is intact. No evidence of skull fracture. CONCLUSION: No acute intracranial abnormality is identified. Landen Catherine MD on October 03, 2017 at 20:25 Board Certified Radiologist. This report was verified electronically.
[2017-10-03] MEDS ORDERED: HALOPERIDOL LACTATE 5 MG/ML AMP ONE (23:27)
[2017-10-03] MEDS ORDERED: diphenhydrAMINE HCL 50 MG/ML VIAL ONE (23:28)
[2017-10-03] MEDS ORDERED: HALOPERIDOL LACTATE 5 MG/ML AMP IM ONE (23:45)
[2017-10-03] MEDS ORDERED: diphenhydrAMINE HCL 50 MG/ML VIAL IM ONE (23:45)
[2017-10-04 06:32] VITALS: BP 105/47; PULSE 61; RESP 16; TEMP 98.2; O2SAT 95
[2017-10-04 07:39] LABS: AUTOMATED NEUTROPHIL # 5.1 TH/MM3 (1.8-7.7); BASOPHIL % 0.5 % (0.0-2.0); EOSINOPHIL # 0.1 TH/MM3 (0-0.4); EOSINOPHIL % 1.3 % (0.0-4.0); HEMATOCRIT 36.5 % (35.0-46.0); HEMOGLOBIN 12.4 GM/DL (11.6-15.3); LYMPH % 16.5 % (9.0-44.0); LYMPHOCYTE # 1.1 TH/MM3 (1.0-4.8); MEAN CELL VOLUME 93.5 FL (80.0-100.0); MEAN CORPUSCULAR HEMOGLOBIN 31.6 PG (27.0-34.0); MEAN CORPUSCULAR HGB CONC 33.8 % (32.0-36.0); MEAN PLATELET VOLUME 8.6 FL (7.0-11.0); MONO % 8.4 % (0.0-8.0); MONOCYTE # 0.6 TH/MM3 (0-0.9); NEUT % 73.3 % (16.0-70.0); PLATELET COUNT 193 TH/MM3 (150-450); RED BLOOD COUNT 3.91 MIL/MM3 (4.00-5.30); RED CELL DISTRIBUTION WIDTH 14.2 % (11.6-17.2); WHITE BLOOD COUNT 6.9 TH/MM3 (4.0-11.0)
[2017-10-04 08:03] LABS: ALBUMIN 3.2 GM/DL (3.4-5.0); ALT (GPT) 37 U/L (10-53); AST (GOT) 42 U/L (15-37); BICARBONATE 27.2 MEQ/L (21.0-32.0); BLOOD UREA NITROGEN 20 MG/DL (7-18); CALCIUM 9.3 MG/DL (8.5-10.1); CHLORIDE 108 MEQ/L (98-107); CREATININE 0.54 MG/DL (0.50-1.00); GLOMERULAR FILTRATION RATE 111 ML/MIN (>89); GLUCOSE,RANDOM 95 MG/DL (74-106); SODIUM (NA) 145 MEQ/L (136-145)
[2017-10-04 08:30] LABS: ALKALINE PHOSPHATASE 104 U/L (45-117); TOTAL BILIRUBIN ADULT 0.8 MG/DL (0.2-1.0); TOTAL PROTEIN 5.8 GM/DL (6.4-8.2)
[2017-10-04] MEDS: NICOTINE 21 MG/24 HR PATCH T-DERMAL SCH (09:00)
--- NOTE | 2017-10-04 10:36 | HHI.PR ---
Subjective Remarks Follow-up visit psychosis, hypokalemia, elevated TSH. Patient seen and examined today lying in bed. Patient is awake and alert. Repetitively saying "Will do, will not, next, we will do, will not, next." Upon asking her questions, she then started to answer repetitively "green, not green, green." She is not able to follow command nor respond to any questions. As per staff, she continues to have echolalia, no acute issues overnight. Objective Vitals Vital Signs Date Time Temp Pulse Resp B/P (MAP) Pulse Ox O2 Delivery O2 Flow Rate FiO2 10/04/17 06:32 98.2 61 16 105/47 (66) 95 10/03/17 18:05 97.6 60 18 111/55 (73) 97 I/O 10/03/17 10/03/17 10/03/17 10/04/17 10/04/17 10/04/17 07:00 15:00 23:00 07:00 15:00 23:00 Intake Total 0 ml 360 ml Balance 0 ml 360 ml Intake Oral 0 ml 360 ml Result Diagram: 10/04/17 0650 10/04/17 0650 Imaging Last Impressions Head CT 10/03/17 0000 Signed Impressions: Service Date/Time: Tuesday, October 03, 2017 19:48 - CONCLUSION: No acute intracranial abnormality is identified. Landen Catherine MD Objective Remarks GENERAL: This is a thin-appearing, well-developed patient, in no apparent distress. SKIN: Cool and dry. Pale HEAD: Normocephalic. EYES: Pupils equal round and reactive. No scleral icterus. No injection or drainage. ENT: Nose without bleeding. Airway patent. NECK: Trachea midline. CARDIOVASCULAR: Regular rate and rhythm without murmurs, gallops, or rubs. RESPIRATORY: Diminished bases. No wheezes, rales, or rhonchi. GASTROINTESTINAL: Abdomen soft, non-tender, nondistended. MUSCULOSKELETAL: Extremities without clubbing, cyanosis, or edema. NEUROLOGICAL: Awake and alert. Patient does not respond to any questions or commands. Echolalia. A/P Problem List: (1) Psychotic episode ICD Code: F23 - Brief psychotic disorder (2) Adjustment disorder with mixed anxiety and depressed mood ICD Code: F43.23 - Adjustment disorder with mixed anxiety and depressed mood Assessment and Plan Patient is a 72-year-old female with no known medical history who came in initially to [facility] in [place] under Porter act by the [place] [employer]. She is now admitted to inpatient psychiatry unit for further evaluation. Consulted for medical management. Psychosis - Echolalia - Managed by psychiatry team Altered MS - CT of the head negative - Neurology consult placed by primary team Hypokalemia - We'll replace potassium - Monitor BMP Elevated TSH - Check T4 - If indicated will start with levothyroxine DVT prop early ambulation Clyde Lee Oct 04, 2017 10:35
--- NOTE | 2017-10-04 12:14 | PD.PSY.CON ---
Provisional Diagnosis Admission Date Oct 03, 2017 at 01:27 [place] I. 1. Brief psychotic disorder [place] II. Deferred History of Present Illness Service Psychiatry Consult Requested By Dr. Meneses Reason for Consult Second opinion for involuntary psychiatric hospitalization Primary Care Physician Unknown HPI From Dr. Meneses's H&P: Patient is 72-year-old white female known to me from prior admission 09/02/17 through 09/03/17 visit [id number] pressure seen, a contact with family appears return to her apartment with her children. This episode patient was initially brought to [facility] under Arrayent act by the [place] [employer] dated 10/02/17 at 1534 hrs. that document reviewed and is essentially stating that Melida appears to be unable to determine if she needs care or treatment by medical billing associate Melida's home was a complete mess with Food and feces all over the house. Melida appeared to be talking to people and about things that were not there during my encounter with her Melida appeared to be unable to care for herself and her home. Melida thought my patrol vehicle was another vehicle and that people were around that were not. Melida's brother arrived on scene to her residence because she was not answering her phone her brother advised that she is not eating and not caring for herself and rambling on about slavery and something to do with "22 seconds" Melida continued to ramble on about various things and people that are not around. Patient seen screen at that facility transferred here under Porter act once medically cleared. Patient seen at the present time in her room with nurse Edith. Patient laying flat on her back to the bed babbling nonsense phrases her eyes wide open she is reaching up over her abdomen with her arms extended straight in the hands grasping and space as if reaching for something. Patient showing no response to my questions. She will grab my hand inside take it close and put it in her hand. Otherwise there is no response to my questions. At this time patient meets criteria for involuntary psychiatric hospitalization on the Porter act I'll do first opinion request second opinion. I feel she does not capacity as for healthcare surrogate and guardian advocate need to contact patient's family get further information helpless with treatment. We will continue hospitalist consult was also. Will refrain from any antipsychotics at this time and further monitor behavior On my examination today, 10/04: Patient seen and examined with nurse. Chart reviewed. Case discussed with nursing staff. On my examination today, patient presents with grossly disorganized thought process. She repeats phrases like "little green, big green." Seeing me, she says "blue, little blue," and I am in fact wearing a blue outfit today. When asked to name a ballpoint pen, she says "pen, black pen." When I ask the location, she says "[place]" and when I ask the date she says "[place]." No real sensible history can be obtained from the patient because of her disorganization. She answers all of my attempts at questions with color phrases ev to those noted above. She appears internally stimulated. She does not verbalize any SI or HI but is unreliable to contract for safety in her present state. She appears fairly disheveled, although I gather her grooming is improved versus admission. I am unable to obtain any past psychiatric, family, chemical dependency or social history from this patient because of her degree of thought disorganization. Review of Systems ROS Limitations: Psychotic, Poor Historian Other Limited ROS. Past Family Social History Coded Allergies: Penicillins (Verified Allergy, Severe, 09/02/17) iodine (Verified Allergy, Severe, 09/02/17) moxifloxacin (Verified Allergy, Severe, 09/02/17) Past Medical History See electronic medical record Active Scripts Hydroxyzine HCl (Hydroxyzine HCl) 50 Mg Tab, 50 MG PO Q6H Y for ANXIETY, #15 TAB 0 Refills Prov:Landen Meneses MD 09/03/17 Reported Medications Metaxalone (Skelaxin) 800 Mg Tablet, 800 09/02/[address] (Nexium) 20 Mg Capdr, 20 MG PO DAILY, CAP 0 Refills 09/02/17 Ranitidine (Zantac) 150 Mg Tab, 150 MG PO BID, #60 TAB 0 Refills 09/02/17 Current Medications Medications (Trade) Dose Ordered Sig/Porsche Route Start Time Stop Time Status Last Admin (Atarax) 50 mg Q6H PRN PO 10/03/17 03:45 (Benadryl) 50 mg HS PRN PO 10/03/17 03:45 (Tylenol) 650 mg Q4H PRN PO 10/03/17 03:45 (Milk Of Magnesia Liq) 30 ml DAILY PRN PO 10/03/17 03:45 (Mag-Al Plus Susp Liq) 30 ml Q6H PRN PO 10/03/17 03:45 (Habitrol 21 Mg Patch.24 Hr) 1 patch DAILY T-DERMAL 10/03/17 09:00 Miscellaneous Information 1 HS T-DERMAL 10/03/17 21:00 Patient's Strengths (min. 2) In a monitored setting. Dr. Meneses notes supportive family. Physical Exam Physical exam completed by hospitalist medical consultant. On my examination today, the patient appears to be in no acute physical distress. No motor abnormalities noted. Labs and vitals reviewed: Vital Signs Vital Signs Date Time Temp Pulse Resp B/P (MAP) Pulse Ox O2 Delivery O2 Flow Rate FiO2 10/04/17 06:32 98.2 61 16 105/47 (66) 95 I/O 10/04/17 10/04/17 10/05/17 08:00 16:00 00:00 Intake Total 240 ml Balance 240 ml Lab Results Item Value Date Time White Blood Count 6.9 TH/MM3 10/04/17 0650 Hemoglobin 12.4 GM/DL 10/04/17 0650 Platelet Count 193 TH/MM3 10/04/17 0650 Sodium Level 145 MEQ/L 10/04/17 0650 Potassium Level 3.0 MEQ/L L 10/04/17 0650 Chloride Level 108 MEQ/L H 10/04/17 0650 Carbon Dioxide Level 27.2 MEQ/L 10/04/17 0650 Blood Urea Nitrogen 20 MG/DL H 10/04/17 0650 Creatinine 0.54 MG/DL 10/04/17 0650 Estimat Glomerular Filtration Rate 111 ML/MIN 10/04/17 0650 Calcium Level 9.3 MG/DL 10/04/17 0650 Magnesium Level 2.2 MG/DL 10/04/17 0650 Aspartate Amino Transf (AST/SGOT) 42 U/L H 10/04/17 0650 Alanine Aminotransferase (ALT/SGPT) 37 U/L 10/04/17 0650 Alkaline Phosphatase 104 U/L 10/04/17 0650 Vitamin B12 Level 1973 PG/ML H 10/04/17 0650 25-Hydroxy Vitamin D Total 87.9 ng/ML 10/04/17 0650 Free Thyroxine 0.90 NG/DL 10/04/17 0650 Thyroid Stimulating Hormone 3rd Gen 5.410 uIU/ML H 10/04/[address] 10/03/17 0000 Signed Impressions: Service Date/Time: Tuesday, October 03, 2017 19:48 - CONCLUSION: No acute intracranial abnormality is identified. Landen Catherine MD Mental Status Examination Appearance: Disheveled Consciousness: Alert Orientation: Person Motor Activity: Other (no motor abnormalities noted) Speech: Other (within normal limits for rate, tone and volume) Language: Other (largely incoherent) Fund of Knowledge: Poor Attention and Concentration: Inadequate Memory: Impaired (difficult to assess because of thought disorganization but suspect some degree of impairment) Mood: Other (patient unable to provide mood) Affect: Other (childlike) Thought Process & Associations: Disorganized Thought Content: Bizarre thinking Hallucination Type: Other (appears internally stimulated) Delusion Type: Other (difficult to assess secondary to thought disorganization) Suicidal Ideation: No (unreliable to contract for safety) Homicidal Ideation: No (unreliable to contract for safety) Insight: Poor Judgment: Poor Assessment & Plan Problem List: (1) Psychotic episode ICD Codes: F23 - Brief psychotic disorder Status: Acute Assessment & Plan Given the circumstances of the patient's presentation here and her presentation on my examination today, I concur with Dr. Meneses that the patient meets criteria for involuntary psychiatric hospitalization. I am concerned in particular for a significant self-care deficit in her present state. I have completed the second opinion paperwork. Further care as per Dr. Meneses. Thank you very much for this consultation. Signing off. Discharge Planning Per Dr. Meneses. Request Surrog/Guard Advoc?: Yes Pratik Dixon MD Oct 04, 2017 12:13
[2017-10-04] MEDS ORDERED: POTASSIUM CHLORIDE 25 MEQ EFFERVESCENT TAB PO ONE (12:15)
--- NOTE | 2017-10-04 12:16 | HHI.PYPN ---
Subjective Chief Complaint: Psychosis Remarks Chart reviewed and discussed patient with nurse. Patient was seen in her room, sleeping initially. Upon waking her she said "hello". She was oriented to name only and quickly became repetitive in her speech. She began crying out, grabbing her right shoulder. Unable to ascertain if patient has pain in that shoulder as she is intermittently unable to answer questions, and presents as a poor historian. She kept repeating her name and the phrase "big cat". Unable to explain why she was here today, when asked she stated "little baby". Unable to elicit patient has any SI or HI. Patient did not appear to be hallucinating , however again she is unable to answer questions. Per nursing staff she did not eat breakfast this morning. Observed patient ambulating down the [place], for lunch, with assistance of a SECURITIES ANALYST, patient has a steady gait. When asked if she was hungry, patient replied yes, and thanked me. Mental Status Examination Appearance: Disheveled Consciousness: Alert Orientation: Person Motor Activity: Normal gait Speech: Other (intermittent repetitive speech) Language: Perseveration, Other Fund of Knowledge: Poor (very poor) Attention and Concentration: Other (poor) Memory: Impaired Mood: Other (childlike and incongruent) Affect: Other (slight increase range intensity) Thought Process & Associations: Disorganized, Other (Patient answers some questions appropriately, then breaks into extended periods of perseveration.) Thought Content: Other Hallucination Type: Other (difficult to ascertain at this time.) Delusion Type: Other (difficult to ascertain at this time) Suicidal Ideation: No Suicidal Plan: No Suicidal Intention: No Homicidal Ideation: No Homicidal Plan: No Homicidal Intention: No Insight: Poor Judgment: Poor Results Labs Test 10/04/17 06:50 White Blood Count 6.9 TH/MM3 Red Blood Count 3.91 MIL/MM3 Hemoglobin 12.4 GM/DL Hematocrit 36.5 % Mean Corpuscular Volume 93.5 FL Mean Corpuscular Hemoglobin 31.6 PG Mean Corpuscular Hemoglobin Concent 33.8 % Red Cell Distribution Width 14.2 % Platelet Count 193 TH/MM3 Mean Platelet Volume 8.6 FL Neutrophils (%) (Auto) 73.3 % Lymphocytes (%) (Auto) 16.5 % Monocytes (%) (Auto) 8.4 % Eosinophils (%) (Auto) 1.3 % Basophils (%) (Auto) 0.5 % Neutrophils # (Auto) 5.1 TH/MM3 Lymphocytes # (Auto) 1.1 TH/MM3 Monocytes # (Auto) 0.6 TH/MM3 Eosinophils # (Auto) 0.1 TH/MM3 Basophils # (Auto) 0.0 TH/MM3 CBC Comment DIFF FINAL Differential Comment Blood Urea Nitrogen 20 MG/DL Creatinine 0.54 MG/DL Random Glucose 95 MG/DL Total Protein 5.8 GM/DL Albumin 3.2 GM/DL Calcium Level 9.3 MG/DL Alkaline Phosphatase 104 U/L Aspartate Amino Transf (AST/SGOT) 42 U/L Alanine Aminotransferase (ALT/SGPT) 37 U/L Total Bilirubin 0.8 MG/DL Sodium Level 145 MEQ/L Potassium Level 3.0 MEQ/L Chloride Level 108 MEQ/L Carbon Dioxide Level 27.2 MEQ/L Anion Gap 10 MEQ/L Estimat Glomerular Filtration Rate 111 ML/MIN Vitamin B12 Level 1973 PG/ML 25-Hydroxy Vitamin D Total 87.9 ng/ML Thyroid Stimulating Hormone 3rd Gen 5.410 uIU/ML Vitals/IOs Vital Signs Date Time Temp Pulse Resp B/P (MAP) Pulse Ox O2 Delivery O2 Flow Rate FiO2 10/04/17 06:32 98.2 61 16 105/47 (93) 95 Assessment & Plan Problem List: (1) Psychotic episode ICD Codes: F23 - Brief psychotic disorder Assessment & Plan Estimated LOS: days patient needs to be monitored and psychiatrically stabilized due to impaired safety. Justification for Cont. Inpt. Patient would decompensate if placed to the lower level of care at this time. Discharge Planning Pending psychiatric stabilization. Request HC Surrog/Guard Advoc?: Yes Tami Saeed Oct 04, 2017 12:16 pm
[2017-10-04 14:47] LABS: MAGNESIUM 2.2 MG/DL (1.5-2.5)
[2017-10-04 14:49] LABS: FREE T4 0.9 NG/DL (0.76-1.46)
[2017-10-04] MEDS: hydrOXYzine HCL 50 MG TAB PO PRN (15:49)
[2017-10-04 18:09] VITALS: BP 131/63; PULSE 84; RESP 16; O2SAT 96
[2017-10-04] MEDS: REMOVE OLD NICOTINE PATCH T-DERMAL SCH (21:00)
--- NOTE | 2017-10-04 22:08 | MB ---
cc: LUI CRUZ M.D. DATE OF CONSULTATION 10/04/2017 REASON FOR CONSULTATION Rapidly progressive mental status changes. HISTORY OF PRESENT ILLNESS Ms. Aguayo is a 72-year-old woman admitted via Porter ACT from [facility] with inability to care for herself. Her home was found to be very disheveled with food and feces over the house. She was talking to people who were not there. Has been delusional. The patient has been saying repetitive phrases which do not make sense, repeating them in a perseverative fashion. She denies headaches. It is difficult to get a reliable history from her MEDICATIONS Currently are: 1. Hydroxyzine. 2. Benadryl. 3. Tylenol. NEUROLOGIC EXAMINATION VITAL SIGNS: Her blood pressure is 105/47, pulse is 61, respiratory rate is 16, temperature 98 degrees. Higher cortical functions, the patient is alert. She is disoriented to date and place. Recalls 0/3 objects in 3 minutes. She has quite a bit of echolalia and perseveration. She repeats phrases that do not make sense, saying certain phrases with "dot com" When prompted with certain questions she picks up on certain words in the questions and repeats them, sometimes singing them or of using the word and then followed with the phrase "dot com". She has no definite frontal lobe release signs. She does follow simple commands. There is no neglect phenomenon. Cranial nerves are intact. Motor exam is normal. Gait is normal. Reflexes symmetric. IMAGING CT of the brain within normal limits. LABORATORY DATA The white count is 6900, hemoglobin 12.4, hematocrit 36%, platelet count 193,000. Sodium is 145, potassium 3.0, chloride 108, CO2 27, the BUN is 20, creatinine 0.54, GFR is 111, glucose 95, calcium 9.3, AST 42, ALT 37. B12 1973. TSH 5.4. Free T4 0.9. IMPRESSION The patient has had dementia which appears to have a lot of frontal lobe features with perseveration, echolalia. RECOMMENDATIONS I would like to get an MRI of the brain for further evaluation as well as an EEG. MD LORRAINE Ohara/ELMIRA /4:36 PM /9:48 PM
--- NOTE | 2017-10-04 22:49 | EKG ---
Date Performed: 10/04/2017 Time Performed: 09:48:15 PTAGE: 72 years EKG: SINUS BRADYCARDIA LEFT ANTERIOR FASCICULAR BLOCK PROLONGED QT INTERVAL ABNORMAL ECG NO PREVIOUS TRACING DOCTOR: Shen Olmos Interpretating Date/Time 10/04/2017 22:45:50
[2017-10-05] MEDS: diphenhydrAMINE HCL 50 MG CAP - HS PRN PO (03:17)
[2017-10-05] MEDS: NICOTINE 21 MG/24 HR PATCH T-DERMAL SCH (09:00)
[2017-10-05 09:25] LABS: BICARBONATE 28.1 MEQ/L (21.0-32.0); CALCIUM 9.9 MG/DL (8.5-10.1); CREATININE 0.75 MG/DL (0.50-1.00)
--- NOTE | 2017-10-05 12:32 | HHI.PYPN ---
Subjective Chief Complaint: Psychosis Remarks Patient seen and wandering into other patient's rooms. Patient seen with nurse Oswald, chart reviewed, patient discussed with nurse. Patient seen wandering confused into other patient's rooms. She is more active and ambulating today she continues markedly disorganized basically speaking repeated individual words with no meeting or context. She shows no ability to remain still and carry on any type for conversation. However she is improved over yesterday. For now we'll continue observation Review of Systems Except as stated in HPI: all other systems reviewed are Neg Mental Status Examination Appearance: Disheveled Consciousness: Alert Orientation: Person Motor Activity: Other (no motor abnormalities noted) Speech: Other (within normal limits for rate, tone and volume) Language: Other (largely incoherent) Fund of Knowledge: Poor Attention and Concentration: Inadequate Memory: Impaired (difficult to assess because of thought disorganization but suspect some degree of impairment) Mood: Other (patient unable to provide mood) Affect: Other (childlike) Thought Process & Associations: Disorganized Thought Content: Bizarre thinking Hallucination Type: Other (appears internally stimulated) Delusion Type: Other (difficult to assess secondary to thought disorganization) Suicidal Ideation: No (unreliable to contract for safety) Homicidal Ideation: No (unreliable to contract for safety) Insight: Poor Judgment: Poor Results Labs Test 10/04/17 20:09 10/05/17 08:09 Erythrocyte Sedimentation Rate 8 mm/hr Blood Urea Nitrogen 24 MG/DL Creatinine 0.75 MG/DL Random Glucose 122 MG/DL Calcium Level 9.9 MG/DL Sodium Level 141 MEQ/L Potassium Level 3.7 MEQ/L Chloride Level 105 MEQ/L Carbon Dioxide Level 28.1 MEQ/L Anion Gap 8 MEQ/L Estimat Glomerular Filtration Rate 76 ML/MIN Vitals/IOs Vital Signs Date Time Temp Pulse Resp B/P (MAP) Pulse Ox O2 Delivery O2 Flow Rate FiO2 10/04/17 18:09 84 16 131/63 (85) 96 10/04/17 06:32 98.2 Intake and Output 10/05/17 10/05/17 10/06/17 08:00 16:00 00:00 Intake Total 90 ml Balance 90 ml Assessment & Plan Problem List: (1) Psychotic episode ICD Codes: F23 - Brief psychotic disorder Status: Acute Assessment & Plan Estimated LOS: days patient continues psychotic confused disoriented though somewhat more active wandering into other patient's rooms. For now continue observation and treatment Justification for Cont. Inpt. At this time patient decompensated placed in a lower level of care Discharge Planning To be determined Request HC Surrog/Guard Advoc?: Yes Landen Meneses MD Oct 05, 2017 12:32
--- NOTE | 2017-10-05 12:36 | HHI.PR ---
Subjective Remarks Follow-up visit psychosis, hypokalemia, elevated TSH. Patient seen resting in another patient's bed, helped back to her room with staffs help. Staff repots that patient did not get much sleep overnight. She is does awake and is alert, oriented to self. Denies any fevers, chill, N/V/D, headache or pain, poor historian. Discussed with nurse who repots that patient continues to have confusion. Objective Vitals Vital Signs Date Time Temp Pulse Resp B/P (MAP) Pulse Ox O2 Delivery O2 Flow Rate FiO2 10/04/17 18:09 84 16 131/63 (85) 96 I/O 10/04/17 10/04/17 10/04/17 10/05/17 10/05/17 10/05/17 07:00 15:00 23:00 07:00 15:00 23:00 Intake Total 240 ml 120 ml 210 ml Balance 240 ml 120 ml 210 ml Intake Oral 240 ml 120 ml 210 ml Result Diagram: 10/04/17 0650 10/05/17 0809 Imaging Last Impressions Head CT 10/03/17 0000 Signed Impressions: Service Date/Time: Tuesday, October 03, 2017 19:48 - CONCLUSION: No acute intracranial abnormality is identified. Landen aCtherine MD Objective Remarks GENERAL: This is a well-developed patient, in no apparent distress. SKIN: Cool and dry. Pale HEAD: Normocephalic. EYES: Pupils equal round and reactive. No scleral icterus. No injection or drainage. ENT: Nose without bleeding. Airway patent. NECK: Trachea midline. CARDIOVASCULAR: Regular rate and rhythm without murmurs, gallops, or rubs. RESPIRATORY: Clear breath sounds. No wheezes, rales, or rhonchi. GASTROINTESTINAL: Abdomen soft, non-tender, nondistended. Normoactive bowel sounds. MUSCULOSKELETAL: Extremities without clubbing, cyanosis, or edema. NEUROLOGICAL: Awake and alert. Oriented to self, following simple commands on and off, moves all extremities, ambulating without assistance. A/P Problem List: (1) Psychotic episode ICD Code: F23 - Brief psychotic disorder Status: Acute (2) Adjustment disorder with mixed anxiety and depressed mood ICD Code: F43.23 - Adjustment disorder with mixed anxiety and depressed mood Assessment and Plan Patient is a 72-year-old female with no known medical history who came in initially to [facility] in [place] under Porter act by the [place] [employer]. She is now admitted to inpatient psychiatry unit for further evaluation. Consulted for medical management. Psychosis - Echolalia - Managed by psychiatry team Altered MS - CT of the head negative - Neurology consult placed by primary team, following, workup in progress, pending EEG and MRI Hypokalemia - s/p KCL replacement - BMP from this AM stable with K 3.7 Elevated TSH - free T4 0.9 - No treatment at the moment, follow up with her PCP once D/C DVT prop early ambulation Discussed with nurse, if EEG and MRI negative, will most likely sign off. Deshaun Manning Oct 05, 2017 12:36
--- NOTE | 2017-10-05 13:50 | PD.TTN ---
Patient Problems 1. Discharge planning 2. Medication compliance 3. Knowledge deficit 4. Lack of coping skills Progress Toward Goals Provider Present: Dr. Olman Meneses Provider Input: 10/04/17 patient is a re-admit today Psychiatric Counselors Present: Angela Mix LCSW Psych Therapist Input: 10/04/17 new to counselor Group Spec/RT/OT/RAMOS Present: Jamel Alan OT Group Spec/RT/OT/RAMOS Input: 10/04/17 new to Recreat.Angela Saavedra LCSW Oct 05, 2017 13:50
[2017-10-05 18:00] VITALS: BP 118/61; PULSE 70; RESP 16; TEMP 98; O2SAT 99
[2017-10-05] MEDS: REMOVE OLD NICOTINE PATCH T-DERMAL SCH (21:00)
[2017-10-06 05:00] VITALS: BP 116/61; PULSE 65; RESP 16; TEMP 97.8; O2SAT 98
[2017-10-06] MEDS: NICOTINE 21 MG/24 HR PATCH T-DERMAL SCH (09:00)
--- NOTE | 2017-10-06 11:06 | HHI.PR ---
Subjective Remarks Follow-up visit psychosis, hypokalemia, elevated TSH. Patient seen and examined sitting up in day room with staff member present. She denies any fevers, chills, nausea, vomiting, diarrhea. Thinks that we are in [place]. Repeatedly saying "how are you how to do". Neurology following, patient will have MRI an EEG at sometime today, no acute concerns reported. Objective Vitals Vital Signs Date Time Temp Pulse Resp B/P (MAP) Pulse Ox O2 Delivery O2 Flow Rate FiO2 10/06/17 05:00 97.8 65 16 116/61 (79) 98 10/05/17 18:00 98.0 70 16 118/61 (80) 99 I/O 10/05/17 10/05/17 10/05/17 10/06/17 10/06/17 10/06/17 07:00 15:00 23:00 07:00 15:00 23:00 Intake Total 210 ml 0 ml Output Total 0 ml Balance 210 ml 0 ml Intake Oral 210 ml 0 ml Output Urine Total 0 ml # Voids 1 Result Diagram: 10/04/17 0650 10/05/17 0809 Imaging Last Impressions Head CT 10/03/17 0000 Signed Impressions: Service Date/Time: Tuesday, October 03, 2017 19:48 - CONCLUSION: No acute intracranial abnormality is identified. Landen Catherine MD Objective Remarks GENERAL: This is a well-developed patient, in no apparent distress. SKIN: Cool and dry. Pale HEAD: Normocephalic. EYES: Pupils equal round and reactive. No scleral icterus. No injection or drainage. ENT: Nose without bleeding. Airway patent. NECK: Trachea midline. CARDIOVASCULAR: Regular rate and rhythm without murmurs, gallops, or rubs. RESPIRATORY: Clear breath sounds. No wheezes, rales, or rhonchi. GASTROINTESTINAL: Abdomen soft, non-tender, nondistended. Normoactive bowel sounds. MUSCULOSKELETAL: Extremities without clubbing, cyanosis, or edema. NEUROLOGICAL: Awake and alert. Oriented to self, following simple commands on and off, moves all extremities, ambulating without assistance. A/P Problem List: (1) Psychotic episode ICD Code: F23 - Brief psychotic disorder Status: Acute (2) Adjustment disorder with mixed anxiety and depressed mood ICD Code: F43.23 - Adjustment disorder with mixed anxiety and depressed mood Assessment and Plan Patient is a 72-year-old female with no known medical history who came in initially to [facility] in [place] under [place] act by the [place] [employer]. She is now admitted to inpatient psychiatry unit for further evaluation. Consulted for medical management. Psychosis - Echolalia - Managed by psychiatry team Altered MS - CT of the head negative - Neurology consult placed by primary team, following, workup in progress, pending EEG and MRI, patient to have this done sometime today. Hypokalemia - s/p KCL replacement - BMP from 10/05 stable with K 3.7 Elevated TSH - free T4 0.9 - No treatment at the moment, follow up with her PCP once D/C DVT prop early ambulation Discussed with nurse, neurology following. Will sign off, please reconsult if needed. Deshaun Manning Oct 06, 2017 11:06
--- NOTE | 2017-10-06 12:41 | HHI.PYPN ---
Subjective Chief Complaint: Psychosis Remarks Met with patient's brother and [id number] along with counselor tex. Discussed patient's behavior admission diagnosis treatment and discharge recommendations. Appears patient was moved on her from [place] and July 2017 due to inability care for herself. Was placed in a home nearby her brother. They have noted continued severe deterioration in behavior self hygiene and ability to live independently. The agreed that placement is the only'real option after discharge. Patient seen today on unit she is ambulatory awake alert confused and disorganized patient continues be quite perseverative with her speech with every word followed by.com. She is otherwise no significant behavioral problem. Family also states that patient will be a DNR affect review of neurology consult I agree with Dr. Booth, I feel patient's diagnosis of be better described as dementia and psychosis at this time Review of Systems Except as stated in HPI: all other systems reviewed are Neg Mental Status Examination Appearance: Disheveled Consciousness: Alert Orientation: Person Motor Activity: Other (no motor abnormalities noted) Speech: Other (within normal limits for rate, tone and volume) Language: Other (largely incoherent) Fund of Knowledge: Poor Attention and Concentration: Inadequate Memory: Impaired (difficult to assess because of thought disorganization but suspect some degree of impairment) Mood: Other (patient unable to provide mood) Affect: Other (childlike) Thought Process & Associations: Disorganized Thought Content: Bizarre thinking Hallucination Type: Other (appears internally stimulated) Delusion Type: Other (difficult to assess secondary to thought disorganization) Suicidal Ideation: No (unreliable to contract for safety) Homicidal Ideation: No (unreliable to contract for safety) Insight: Poor Judgment: Poor Results Vitals/IOs Vital Signs Date Time Temp Pulse Resp B/P (MAP) Pulse Ox O2 Delivery O2 Flow Rate FiO2 10/06/17 05:00 97.8 65 16 116/61 (79) 98 Intake and Output 10/06/17 10/06/17 10/07/17 08:00 16:00 00:00 Intake Total 0 ml Balance 0 ml Assessment & Plan Problem List: (1) Psychotic episode ICD Codes: F23 - Brief psychotic disorder Status: Acute (2) DEMENTIA IN OTH DISEASES CLASSD ELSWHR W BEHAVIORAL DISTURB ICD Codes: F02.81 - DEMENTIA IN OTH DISEASES CLASSD ELSWHR W BEHAVIORAL DISTURB (3) ALZHEIMER'S DISEASE WITH LATE ONSET ICD Codes: G30.1 - ALZHEIMER'S DISEASE WITH LATE ONSET Assessment & Plan Estimated LOS: days patient continues confused psychotic though now for more more appearances of a dementia also. For now continue treatment with this time patient diagnosis would better be subsumed under dementia Justification for Cont. Inpt. At this time patient decompensated placed on lower level of care Discharge Planning Placement needs to be determined will work with family Request HC Surrog/Guard Advoc?: Yes Landen Meneses MD Oct 06, 2017 12:41
[2017-10-06] MEDS: hydrOXYzine HCL 50 MG TAB PO PRN (16:39)
[2017-10-06] MEDS ORDERED: GADODIAMIDE PF 287 MG/ML 5 ML VIAL (for RAD MRI) IVCONTRAST ONE (17:38)
[2017-10-06 18:24] VITALS: BP 115/62; PULSE 66; RESP 18; TEMP 98.6; O2SAT 98
--- NOTE | 2017-10-06 18:25 | RADRPT ---
EXAM DATE/TIME: 10/06/2017 17:13 [facility] COMPARISON: No previous studies available for comparison. INDICATIONS : Altered mental status. CONTRAST: 11 cc Omniscan (gadodiamide) IV MEDICAL HISTORY : Diabetes mellitus type 2. SURGICAL HISTORY : ORIF wrist ENCOUNTER: Subsequent ACUITY: 4-6 days PAIN SCORE: 0/10 LOCATION: cranial TECHNIQUE: Multiplanar, multisequence MRI of the brain was performed both prior to and following the administrat ion of paramagnetic contrast. FINDINGS: CEREBRUM: The ventricles are normal for age. No evidence of midline shift, mass lesion, hemorrhage or acute in farction. No extraaxial fluid collections are seen. The pituitary gland and suprasellar cistern are normal in configuration. WHITE MATTER: No significant signal abnormalities are seen in the white matter. POSTERIOR FOSSA: The cerebellum and brainstem are intact. The 4th ventricle is midline. The cerebellopontine angle is unremarkable. The cerebellar tonsils are normal in position. DIFFUSION IMAGING: No focal areas of restricted diffusion are seen. No evidence of acute infarction. EXTRACRANIAL: The visualized portions of the orbits and paranasal sinuses are unremarkable. POST-CONTRAST: No abnormal areas of parenchymal or dural enhancement. No evidence of blood-brain barrier breakdown. CONCLUSION: 1. Negative examination. Dayo Mercado MD on October 06, 2017 at 18:21 Board Certified Radiologist. This report was verified electronically.
[2017-10-06] MEDS: diphenhydrAMINE HCL 50 MG CAP - HS PRN PO (20:23)
[2017-10-06] MEDS: REMOVE OLD NICOTINE PATCH T-DERMAL SCH (20:23)
[2017-10-07] MEDS: hydrOXYzine HCL 50 MG TAB PO PRN (05:04)
[2017-10-07 05:24] VITALS: BP 148/66; PULSE 70; RESP 18; TEMP 98.6; O2SAT 95
[2017-10-07] MEDS: NICOTINE 21 MG/24 HR PATCH T-DERMAL SCH (09:00)
--- NOTE | 2017-10-07 09:11 | HHI.PYPN ---
Subjective Chief Complaint: Psychosis Remarks Patient seen in day room with nurse Pito, chart review, patient discussed with nurse. Patient sitting quietly she is calm pleasant, pleasantly confused, giving very brief one-word replies a few pliant ending with ".com" at times she also perseverates on the phrase ".com" patient scheduled for [place] today. Patient showing no behavioral problems Review of Systems Except as stated in HPI: all other systems reviewed are Neg Mental Status Examination Appearance: Disheveled Consciousness: Alert Orientation: Person Motor Activity: Other (no motor abnormalities noted) Speech: Other (within normal limits for rate, tone and volume) Language: Other (largely incoherent) Fund of Knowledge: Poor Attention and Concentration: Inadequate Memory: Impaired (difficult to assess because of thought disorganization but suspect some degree of impairment) Mood: Other (patient unable to provide mood) Affect: Other (childlike) Thought Process & Associations: Disorganized Thought Content: Bizarre thinking Hallucination Type: Other (appears internally stimulated) Delusion Type: Other (difficult to assess secondary to thought disorganization) Suicidal Ideation: No (unreliable to contract for safety) Homicidal Ideation: No (unreliable to contract for safety) Insight: Poor Judgment: Poor Results Vitals/IOs Vital Signs Date Time Temp Pulse Resp B/P (MAP) Pulse Ox O2 Delivery O2 Flow Rate FiO2 10/07/17 05:24 98.6 70 18 148/66 (93) 95 Intake and Output 10/07/17 10/07/17 10/08/17 08:00 16:00 00:00 Intake Total 0 ml Balance 0 ml Assessment & Plan Problem List: (1) Psychotic episode ICD Codes: F23 - Brief psychotic disorder Status: Acute (2) DEMENTIA IN OTH DISEASES CLASSD ELSWHR W BEHAVIORAL DISTURB ICD Codes: F02.81 - DEMENTIA IN OTH DISEASES CLASSD ELSWHR W BEHAVIORAL DISTURB (3) ALZHEIMER'S DISEASE WITH LATE ONSET ICD Codes: G30.1 - ALZHEIMER'S DISEASE WITH LATE ONSET Assessment & Plan Estimated LOS: days patient continues confused disoriented with medical loudly and perseverative behaviors. To [place] [address] today Justification for Cont. Inpt. At this time patient decompensate the place to the lower level of care Discharge Planning To be determined Request HC Surrog/Guard Advoc?: Yes Landen Meneses MD Oct 07, 2017 09:11
[2017-10-07 13:53] LABS: BACTERIA, URINE RARE /hpf; BILIRUBIN, URINE NEG (NEG); BLOOD, URINE NEG (NEG); GLUCOSE,URINE NEG (NEG); KETONE, URINE NEG (NEG); NITRITE,URINE NEG (NEG); SQUAMOUS EPITHELIAL CELL URINE 1 /hpf (0-5); URINE COLOR YELLOW (YELLW/STRAW); URINE LEUKOCYTE ESTERASE LARGE (NEG)
[2017-10-07 13:56] LABS: AMORPHOUS SEDIMENT, URINE MOD
[2017-10-07 17:20] VITALS: BP 166/119; PULSE 75; RESP 18; TEMP 98.6; O2SAT 95
[2017-10-07] MEDS: REMOVE OLD NICOTINE PATCH T-DERMAL SCH (21:00)
[2017-10-08] MEDS: hydrOXYzine HCL 50 MG TAB PO PRN ×2 (01:15→15:00)
[2017-10-08] MEDS: diphenhydrAMINE HCL 50 MG CAP - HS PRN PO (03:30)
[2017-10-08] MEDS ORDERED: OLANZapine IM 10 MG VIAL IM ONE ×3 (05:15→17:00)
[2017-10-08 06:17] VITALS: BP 156/94; PULSE 82; RESP 20; O2SAT 99
[2017-10-08] MEDS: NICOTINE 21 MG/24 HR PATCH T-DERMAL SCH (09:00)
--- NOTE | 2017-10-08 12:14 | HHI.PYPN ---
Subjective Chief Complaint: Psychosis Remarks In day room him a chart review, patient discussed with nurse. Thus today continues with the perseveration on.com is able to identify me as DrJu but said I wasn't.com and that the table she said that was the hospital and that was a.com. Patient did not sleep last night was given ETO in the early a.m. of 5 mg Zyprexa will help relax her somewhat. Review of Systems Except as stated in HPI: all other systems reviewed are Neg Mental Status Examination Appearance: Disheveled Consciousness: Alert Orientation: Person Motor Activity: Other (no motor abnormalities noted) Speech: Other (within normal limits for rate, tone and volume) Language: Other (largely incoherent) Fund of Knowledge: Poor Attention and Concentration: Inadequate Memory: Impaired (difficult to assess because of thought disorganization but suspect some degree of impairment) Mood: Other (patient unable to provide mood) Affect: Other (childlike) Thought Process & Associations: Disorganized Thought Content: Bizarre thinking Hallucination Type: Other (appears internally stimulated) Delusion Type: Other (difficult to assess secondary to thought disorganization) Suicidal Ideation: No (unreliable to contract for safety) Homicidal Ideation: No (unreliable to contract for safety) Insight: Poor Judgment: Poor Results Labs Test 10/07/17 13:00 Urine Color YELLOW Urine Turbidity CLOUDY Urine pH 7.0 Urine Specific [place] 1.016 Urine Protein TRACE mg/dL Urine Glucose (UA) NEG mg/dL Urine Ketones NEG mg/dL Urine Occult Blood NEG Urine Nitrite NEG Urine Bilirubin NEG Urine Urobilinogen 2.0 MG/DL Urine Leukocyte Esterase LARGE Urine RBC LESS THAN 1 /hpf Urine WBC LESS THAN 1 /hpf Urine Squamous Epithelial Cells 1 /hpf Urine Amorphous Sediment MOD Urine Bacteria RARE /hpf Microscopic Urinalysis Comment CULT NOT INDICATED Vitals/IOs Vital Signs Date Time Temp Pulse Resp B/P (MAP) Pulse Ox O2 Delivery O2 Flow Rate FiO2 10/08/17 06:17 82 20 156/94 (114) 99 10/07/17 17:20 98.6 Intake and Output 10/08/17 10/08/17 10/09/17 08:00 16:00 00:00 Intake Total 120 ml Balance 120 ml Assessment & Plan Problem List: (1) Psychotic episode ICD Codes: F23 - Brief psychotic disorder Status: Acute (2) DEMENTIA IN OTH DISEASES CLASSD ELSWHR W BEHAVIORAL DISTURB ICD Codes: F02.81 - DEMENTIA IN OTH DISEASES CLASSD ELSWHR W BEHAVIORAL DISTURB (3) ALZHEIMER'S DISEASE WITH LATE ONSET ICD Codes: G30.1 - ALZHEIMER'S DISEASE WITH LATE ONSET Assessment & Plan Estimated LOS: days she remains confused demented perseverative will elevate echolalia Justification for Cont. Inpt. At this time patient decompensated placed in a lower level of care Discharge Planning To be determined Request HC Surrog/Guard Advoc?: Yes Landen Meneses MD Oct 08, 2017 12:14
[2017-10-08] MEDS ORDERED: diphenhydrAMINE HCL 50 MG/ML VIAL ONE (17:46)
[2017-10-08] MEDS ORDERED: HALOPERIDOL LACTATE 5 MG/ML AMP ONE (17:46)
[2017-10-08] MEDS ORDERED: diphenhydrAMINE HCL 50 MG/ML VIAL IM ONE (18:00)
[2017-10-08] MEDS ORDERED: HALOPERIDOL LACTATE 5 MG/ML AMP IM ONE (18:00)
[2017-10-08] MEDS: OLANZapine 5 MG TAB PO SCH (20:29)
[2017-10-08] MEDS: REMOVE OLD NICOTINE PATCH T-DERMAL SCH (20:29)
--- NOTE | 2017-10-08 21:51 | MG ---
cc: CELINA GUERRERO MD Lab No: Date: 10/07/17 Age: 72 Sex: F Race: REFERRING PHYSICIAN Dr. Booth An EEG was obtained on this 72-year-old patient being evaluated for delusions. The patient is awake and talking throughout the EEG. The EEG is showing low amplitude and some mid amplitude 10-15 per second rhythms posteriorly. There are faster beta rhythms frontally. The background is reactive. There is some muscle and movement artifact, but overall the quality of the study is quite reasonable despite the patient's frequent talking. At times, there are some shifting small sharp discharges, right more than left, with some intermixed theta rhythms. INTERPRETATION This EEG shows intermittent, right more than left, small sharp discharges which is of equivocal significance but could be indicative of an epileptiform abnormality in this region. Clinical and imaging correlation. Celina Guerrero MD [facility]/ /9:04 PM /9:44 PM
[2017-10-09 05:55] VITALS: BP 94/53; PULSE 54; RESP 16; TEMP 98.3; O2SAT 95
[2017-10-09] MEDS: hydrOXYzine HCL 50 MG TAB PO PRN (08:15)
[2017-10-09] MEDS: NICOTINE 21 MG/24 HR PATCH T-DERMAL SCH (09:00)
--- NOTE | 2017-10-09 15:39 | HHI.PYPN ---
Subjective Chief Complaint: Psychosis Remarks Pt seen and discussed with staff. She is pleasant but with very loose associations. She introduces herself as "nicki McLarensrivka .[employer], att.[employer]". No aggression or agitation. She visited with her brother today. She is cooperative with care and medications. Mental Status Examination Appearance: Disheveled Consciousness: Alert Orientation: Person Motor Activity: Other (no motor abnormalities noted) Speech: Other (within normal limits for rate, tone and volume) Language: Other (largely incoherent) Fund of Knowledge: Poor Attention and Concentration: Inadequate Memory: Impaired (difficult to assess because of thought disorganization but suspect some degree of impairment) Mood: Other (patient unable to provide mood) Affect: Other (childlike) Thought Process & Associations: Loose associations, Disorganized Thought Content: Bizarre thinking Hallucination Type: Other (appears internally stimulated) Delusion Type: Bizarre, Other Suicidal Ideation: No (unreliable to contract for safety) Homicidal Ideation: No (unreliable to contract for safety) Insight: Poor Judgment: Poor Results Vitals/IOs Vital Signs Date Time Temp Pulse Resp B/P (MAP) Pulse Ox O2 Delivery O2 Flow Rate FiO2 10/09/17 05:55 98.3 54 16 94/53 (67) 95 Intake and Output 10/09/17 10/09/17 10/10/17 08:00 16:00 00:00 Intake Total 220 ml Balance 220 ml Assessment & Plan Problem List: (1) Psychotic episode ICD Codes: F23 - Brief psychotic disorder Status: Acute (2) DEMENTIA IN OTH DISEASES CLASSD ELSWHR W BEHAVIORAL DISTURB ICD Codes: F02.81 - DEMENTIA IN OTH DISEASES CLASSD ELSWHR W BEHAVIORAL DISTURB (3) ALZHEIMER'S DISEASE WITH LATE ONSET ICD Codes: G30.1 - ALZHEIMER'S DISEASE WITH LATE ONSET Assessment & Plan contnue curent tx pllan Estimated LOS: days Justification for Cont. Inpt. psychosis Request HC Surrog/Guard Advoc?: Yes Loyda Araujo MD Oct 09, 2017 15:39
[2017-10-09 18:19] VITALS: BP 104/61; PULSE 66; RESP 18; TEMP 97.4; O2SAT 98
[2017-10-09] MEDS: REMOVE OLD NICOTINE PATCH T-DERMAL SCH (20:46)
[2017-10-09] MEDS: diphenhydrAMINE HCL 50 MG CAP - HS PRN PO (20:46)
[2017-10-09] MEDS: OLANZapine 5 MG TAB PO SCH (20:46)
[2017-10-10] MEDS ORDERED: HALOPERIDOL LACTATE 5 MG/ML AMP IM ONE (02:55)
[2017-10-10] MEDS ORDERED: diphenhydrAMINE HCL 50 MG/ML VIAL IM ONE (03:30)
[2017-10-10 05:44] VITALS: BP 135/64; PULSE 82; RESP 18; TEMP 97.9; O2SAT 98
[2017-10-10] MEDS: NICOTINE 21 MG/24 HR PATCH T-DERMAL SCH (08:59)
--- NOTE | 2017-10-10 14:59 | HHI.PYPN ---
Subjective Chief Complaint: Psychosis Remarks Pt seen and discussed with staff. She continues to engage in pressured, rapid nonsensical speech. She became agitated and began banging tray on table, but calmed with staff redirection. She was compliant with medications Mental Status Examination Appearance: Disheveled Consciousness: Alert Orientation: Person Motor Activity: Other (no motor abnormalities noted) Speech: Other (within normal limits for rate, tone and volume) Language: Other (largely incoherent) Fund of Knowledge: Poor Attention and Concentration: Inadequate Memory: Impaired (impaired) Mood: Irritable Affect: Other (childlike) Thought Process & Associations: Loose associations, Disorganized Thought Content: Bizarre thinking Hallucination Type: Other (appears internally stimulated) Delusion Type: Bizarre, Other Suicidal Ideation: No Suicidal Plan: No Suicidal Intention: No Homicidal Ideation: No Homicidal Plan: No Insight: Poor Judgment: Poor Results Vitals/IOs Vital Signs Date Time Temp Pulse Resp B/P (MAP) Pulse Ox O2 Delivery O2 Flow Rate FiO2 10/10/17 05:44 97.9 82 18 135/64 (87) 98 Intake and Output 10/10/17 10/10/17 10/11/17 08:00 16:00 00:00 Intake Total 180 ml Balance 180 ml Assessment & Plan Problem List: (1) Psychotic episode ICD Codes: F23 - Brief psychotic disorder Status: Acute (2) DEMENTIA IN OTH DISEASES CLASSD ELSWHR W BEHAVIORAL DISTURB ICD Codes: F02.81 - DEMENTIA IN OTH DISEASES CLASSD ELSWHR W BEHAVIORAL DISTURB (3) ALZHEIMER'S DISEASE WITH LATE ONSET ICD Codes: G30.1 - ALZHEIMER'S DISEASE WITH LATE ONSET Assessment & Plan Continue current tx plan Estimated LOS: days Justification for Cont. Inpt. agitation Request HC Surrog/Guard Advoc?: Yes Loyda Araujo MD Oct 10, 2017 14:59
[2017-10-10 18:18] VITALS: BP 184/84; PULSE 78; RESP 18; TEMP 98.2; O2SAT 99
[2017-10-10] MEDS: diphenhydrAMINE HCL 50 MG CAP - HS PRN PO (20:38)
[2017-10-10] MEDS: OLANZapine 5 MG TAB PO SCH (20:39)
[2017-10-10] MEDS: REMOVE OLD NICOTINE PATCH T-DERMAL SCH (20:45)
[2017-10-11] MEDS: hydrOXYzine HCL 50 MG TAB PO PRN (01:01)
[2017-10-11 06:06] VITALS: BP 115/60; PULSE 66; RESP 18; TEMP 98; O2SAT 96
[2017-10-11] MEDS: NICOTINE 21 MG/24 HR PATCH T-DERMAL SCH (08:23)
--- NOTE | 2017-10-11 13:23 | HHI.PYPN ---
Subjective Chief Complaint: Psychosis Remarks Patient seen in day room with nurse Kristal, chart reviewed, patient compliant medication. Patient discussed with nurse. Patient alert diffusely confused today she is grabbing at the ear front of her. Attempting to grab towards Kristal and myself. She called me Dr. Harris, and she called Kristal acosta. She has been somewhat intrusive amount through the day also. Will increase Abilify to 5 mg twice a day Review of Systems Except as stated in HPI: all other systems reviewed are Neg Mental Status Examination Appearance: Disheveled Consciousness: Alert Orientation: Person Motor Activity: Other (no motor abnormalities noted) Speech: Other (within normal limits for rate, tone and volume) Language: Other (largely incoherent) Fund of Knowledge: Poor Attention and Concentration: Inadequate Memory: Impaired (impaired) Mood: Irritable Affect: Other (childlike) Thought Process & Associations: Loose associations, Disorganized Thought Content: Bizarre thinking Hallucination Type: Other (appears internally stimulated) Delusion Type: Bizarre, Other Suicidal Ideation: No Suicidal Plan: No Suicidal Intention: No Homicidal Ideation: No Homicidal Plan: No Insight: Poor Judgment: Poor Results Vitals/IOs Vital Signs Date Time Temp Pulse Resp B/P (MAP) Pulse Ox O2 Delivery O2 Flow Rate FiO2 10/11/17 06:06 98.0 66 18 115/60 (78) 96 Intake and Output 10/11/17 10/11/17 10/12/17 08:00 16:00 00:00 Intake Total 240 ml 360 ml Balance 240 ml 360 ml Assessment & Plan Problem List: (1) Psychotic episode ICD Codes: F23 - Brief psychotic disorder Status: Acute (2) DEMENTIA IN OTH DISEASES CLASSD ELSWHR W BEHAVIORAL DISTURB ICD Codes: F02.81 - DEMENTIA IN OTH DISEASES CLASSD ELSWHR W BEHAVIORAL DISTURB (3) ALZHEIMER'S DISEASE WITH LATE ONSET ICD Codes: G30.1 - ALZHEIMER'S DISEASE WITH LATE ONSET Assessment & Plan Estimated LOS: days patient remains confused demented and somewhat loud intrusive Justification for Cont. Inpt. Stating patient with decompensated place to the lower level of care Discharge Planning Placement may be difficult Request HC Surrog/Guard Advoc?: Yes Landen Meneses MD Oct 11, 2017 13:23
[2017-10-11] MEDS ORDERED: OLANZapine 5 MG TAB PO ONE (15:00)
--- NOTE | 2017-10-11 16:23 | PD.TTN ---
Patient Problems 1. Discharge planning 2. Medication compliance 3. Knowledge deficit 4. Lack of coping skills Progress Toward Goals Provider Present: Dr. Olman Meneses Provider Input: 10/11 meds adjusted, more, had many psychotic phases today and over weekend 10/[address] , still observing for med adjustment 10/04/17 patient is a re-admit today Psychiatric Counselors Present: Angela Mix LCSW Psych Therapist Input: 10/11 needs stabilization before being placed, [facility] and other facilities accepted her 10/06 family meeting today to plan placement 10/04/17 new to counselor Group Spec/RT/OT/RAMOS Present: Jamel Alan, OT Group Spec/RT/OT/RAMOS Input: 10/11 unable to attend 10/06 was in pet therapy very tearful, appears pre-occupied 10/04/17 new to [facility].Angela Saavedra LCSW Oct 11, 2017 16:23
[2017-10-11 18:33] VITALS: BP 160/77; PULSE 82; RESP 18; TEMP 98.3; O2SAT 99
[2017-10-11] MEDS ORDERED: diphenhydrAMINE HCL 50 MG/ML VIAL IM ONE (20:00)
[2017-10-11] MEDS ORDERED: HALOPERIDOL LACTATE 5 MG/ML AMP IM ONE (20:00)
[2017-10-11] MEDS: OLANZapine 5 MG TAB PO SCH (20:06)
[2017-10-11] MEDS: REMOVE OLD NICOTINE PATCH T-DERMAL SCH (21:00)
[2017-10-12] MEDS ORDERED: HALOPERIDOL LACTATE 5 MG/ML AMP IM ONE (00:15)
[2017-10-12] MEDS ORDERED: diphenhydrAMINE HCL 50 MG/ML VIAL IM ONE (00:15)
[2017-10-12 05:31] VITALS: BP 154/85; PULSE 86; RESP 18; TEMP 97.6; O2SAT 96
[2017-10-12] MEDS: OLANZapine 5 MG TAB PO SCH ×2 (08:25→21:25)
[2017-10-12] MEDS: NICOTINE 21 MG/24 HR PATCH T-DERMAL SCH (08:31)
[2017-10-12] MEDS ORDERED: HALOPERIDOL LACTATE 5 MG/ML AMP ONE (09:39)
[2017-10-12] MEDS ORDERED: diphenhydrAMINE HCL 50 MG/ML VIAL ONE (09:39)
[2017-10-12] MEDS ORDERED: HALOPERIDOL LACTATE 5 MG/ML AMP IM STA (09:51)
[2017-10-12] MEDS ORDERED: diphenhydrAMINE HCL 50 MG/ML VIAL IM STA (09:52)
--- NOTE | 2017-10-12 13:00 | HHI.PYPN ---
Subjective Chief Complaint: Psychosis Remarks Patient seen in day room with nurse Giraldo, chart review, patient discussed with nurse. Patient continues diffusely confused labile wandering needing frequent redirection. This is necessitated use of when necessary medications. Patient continues to perseverate with the word ".com. This denied to feel her primary diagnosis is better described under dementia than psychosis. Review of Systems Except as stated in HPI: all other systems reviewed are Neg Mental Status Examination Appearance: Disheveled Consciousness: Alert Orientation: Person Motor Activity: Other (no motor abnormalities noted) Speech: Other (within normal limits for rate, tone and volume) Language: Other (largely incoherent) Fund of Knowledge: Poor Attention and Concentration: Inadequate Memory: Impaired (impaired) Mood: Irritable Affect: Other (childlike) Thought Process & Associations: Loose associations, Disorganized Thought Content: Bizarre thinking Hallucination Type: Other (appears internally stimulated) Delusion Type: Bizarre, Other Suicidal Ideation: No Suicidal Plan: No Suicidal Intention: No Homicidal Ideation: No Homicidal Plan: No Insight: Poor Judgment: Poor Results Vitals/IOs Vital Signs Date Time Temp Pulse Resp B/P (MAP) Pulse Ox O2 Delivery O2 Flow Rate FiO2 10/12/17 05:31 97.6 86 18 154/85 (108) 96 Intake and Output 10/12/17 10/12/17 10/13/17 08:00 16:00 00:00 Intake Total 240 ml Balance 240 ml Assessment & Plan Problem List: (1) DEMENTIA IN OTH DISEASES CLASSD ELSWHR W BEHAVIORAL DISTURB ICD Codes: F02.81 - DEMENTIA IN OTH DISEASES CLASSD ELSWHR W BEHAVIORAL DISTURB (2) ALZHEIMER'S DISEASE WITH LATE ONSET ICD Codes: G30.1 - ALZHEIMER'S DISEASE WITH LATE ONSET Assessment & Plan Estimated LOS: days patient remains diffusely confused disoriented perseverative psychotic. I feel her diagnosis may be better described at this time as dementia Justification for Cont. Inpt. At this time patient will decompensate a place to the lower level of care Discharge Planning Placement may become problematic Request HC Surrog/Guard Advoc?: Yes Landen Meneses MD Oct 12, 2017 12:59
[2017-10-12 17:43] VITALS: BP 154/85; PULSE 86; RESP 18; TEMP 97.6
[2017-10-12] MEDS: REMOVE OLD NICOTINE PATCH T-DERMAL SCH (21:00)
[2017-10-12] MEDS: hydrOXYzine HCL 50 MG TAB PO PRN (21:25)
[2017-10-12 22:07] VITALS: BP 117/56; PULSE 71; RESP 16
[2017-10-13 05:30] VITALS: BP 140/68; PULSE 69; RESP 17; TEMP 97.9; O2SAT 97
[2017-10-13] MEDS: hydrOXYzine HCL 50 MG TAB PO PRN ×2 (06:26→22:48)
[2017-10-13] MEDS: NICOTINE 21 MG/24 HR PATCH T-DERMAL SCH (08:22)
[2017-10-13] MEDS: OLANZapine 5 MG TAB PO SCH (08:24)
--- NOTE | 2017-10-13 13:02 | HHI.PYPN ---
Subjective Chief Complaint: Psychosis Remarks Patient seen in day room with nurse Obdulia, chart review, patient discussed with nurse. Patient continues to perseverate calm with echolalia continues with the.calm. She continues somewhat intrusive into other people's personal space and rooms. Did not sleep well last night. Will increase Zyprexa to 5 mg a.m. 10 mg at bedtime Review of Systems Except as stated in HPI: all other systems reviewed are Neg Mental Status Examination Appearance: Disheveled Consciousness: Alert Orientation: Person Motor Activity: Other (no motor abnormalities noted) Speech: Other (within normal limits for rate, tone and volume) Language: Other (largely incoherent) Fund of Knowledge: Poor Attention and Concentration: Inadequate Memory: Impaired (impaired) Mood: Irritable Affect: Other (childlike) Thought Process & Associations: Loose associations, Disorganized Thought Content: Bizarre thinking Hallucination Type: Other (appears internally stimulated) Delusion Type: Bizarre, Other Suicidal Ideation: No Suicidal Plan: No Suicidal Intention: No Homicidal Ideation: No Homicidal Plan: No Insight: Poor Judgment: Poor Results Vitals/IOs Vital Signs Date Time Temp Pulse Resp B/P (MAP) Pulse Ox O2 Delivery O2 Flow Rate FiO2 10/13/17 05:30 97.9 69 17 140/68 (92) 97 Intake and Output 10/13/17 10/13/17 10/14/17 08:00 16:00 00:00 Intake Total 120 ml 120 ml Balance 120 ml 120 ml Assessment & Plan Problem List: (1) DEMENTIA IN OTH DISEASES CLASSD ELSWHR W BEHAVIORAL DISTURB ICD Codes: F02.81 - DEMENTIA IN OTH DISEASES CLASSD ELSWHR W BEHAVIORAL DISTURB (2) ALZHEIMER'S DISEASE WITH LATE ONSET ICD Codes: G30.1 - ALZHEIMER'S DISEASE WITH LATE ONSET Assessment & Plan Estimated LOS: days patient continues diffusely confused disoriented intrusive somewhat psychotic. She medication adjustment above Justification for Cont. Inpt. At this time patient decompensated placed in a lower level of care Discharge Planning Placement remains problematic at this time that appears patient might be accepted at [facility] once she is further stabilized Request HC Surrog/Guard Advoc?: Yes Landen Meneses MD Oct 13, 2017 13:02
[2017-10-13 18:00] VITALS: BP 121/68; PULSE 83; RESP 16; TEMP 97.4; O2SAT 95
[2017-10-13] MEDS: REMOVE OLD NICOTINE PATCH T-DERMAL SCH (21:00)
[2017-10-13] MEDS: OLANZapine 10 MG TAB PO SCH (21:00)
[2017-10-14] MEDS: diphenhydrAMINE HCL 50 MG CAP - HS PRN PO (00:52)
[2017-10-14] MEDS ORDERED: diphenhydrAMINE HCL 50 MG/ML VIAL ONE (04:45)
[2017-10-14] MEDS ORDERED: HALOPERIDOL LACTATE 5 MG/ML AMP ONE (04:45)
[2017-10-14] MEDS ORDERED: HALOPERIDOL LACTATE 5 MG/ML AMP IM SCH (05:00)
[2017-10-14] MEDS ORDERED: diphenhydrAMINE HCL 50 MG/ML VIAL IM SCH (05:00)
[2017-10-14 05:44] VITALS: BP 120/56; PULSE 77; RESP 20; TEMP 97.5; O2SAT 96
[2017-10-14] MEDS: OLANZapine 5 MG TAB PO SCH (08:27)
[2017-10-14] MEDS: NICOTINE 21 MG/24 HR PATCH T-DERMAL SCH (09:00)
--- NOTE | 2017-10-14 10:26 | HHI.PYPN ---
Subjective Chief Complaint: Psychosis Remarks Patient seen in day room with floor staff, chart reviewed, patient compliant medications. Patient discussed with nurse. Patient continues diffusely confused quiet today there is some small decrease in her perseveration and echolalia. For now continue treatment Review of Systems Except as stated in HPI: all other systems reviewed are Neg Mental Status Examination Appearance: Disheveled Consciousness: Alert Orientation: Person Motor Activity: Other (no motor abnormalities noted) Speech: Other (within normal limits for rate, tone and volume) Language: Other (largely incoherent) Fund of Knowledge: Poor Attention and Concentration: Inadequate Memory: Impaired (impaired) Mood: Irritable Affect: Other (childlike) Thought Process & Associations: Loose associations, Disorganized Thought Content: Bizarre thinking Hallucination Type: Other (appears internally stimulated) Delusion Type: Bizarre, Other Suicidal Ideation: No Suicidal Plan: No Suicidal Intention: No Homicidal Ideation: No Homicidal Plan: No Insight: Poor Judgment: Poor Results Vitals/IOs Vital Signs Date Time Temp Pulse Resp B/P (MAP) Pulse Ox O2 Delivery O2 Flow Rate FiO2 10/14/17 05:44 97.5 77 20 120/56 (77) 96 Intake and Output 10/14/17 10/14/17 10/14/17 07:59 15:59 23:59 Intake Total 360 ml Balance 360 ml Assessment & Plan Problem List: (1) DEMENTIA IN OTH DISEASES CLASSD ELSWHR W BEHAVIORAL DISTURB ICD Codes: F02.81 - DEMENTIA IN OTH DISEASES CLASSD ELSWHR W BEHAVIORAL DISTURB (2) ALZHEIMER'S DISEASE WITH LATE ONSET ICD Codes: G30.1 - ALZHEIMER'S DISEASE WITH LATE ONSET Assessment & Plan Estimated LOS: days patient continues confused demented psychotic though the psychotic features appear to be softening slightly. Patient compliant medications. Justification for Cont. Inpt. At this time patient will decompensate if place a lower level of care Discharge Planning Placement may become somewhat problematic Request HC Surrog/Guard Advoc?: Yes Landen Meneses MD Oct 14, 2017 10:26
[2017-10-14 17:31] VITALS: BP 121/67; PULSE 86; RESP 18; TEMP 98.3; O2SAT 97
[2017-10-14] MEDS: hydrOXYzine HCL 50 MG TAB PO PRN (20:37)
[2017-10-14] MEDS: OLANZapine 10 MG TAB PO SCH (20:37)
[2017-10-14] MEDS: REMOVE OLD NICOTINE PATCH T-DERMAL SCH (20:52)
[2017-10-15 05:42] VITALS: BP 108/56; PULSE 61; RESP 18; TEMP 96.4; O2SAT 98
[2017-10-15 08:40] VITALS: BP 108/56; PULSE 61; RESP 18; TEMP 96.4; O2SAT 98
[2017-10-15] MEDS: NICOTINE 21 MG/24 HR PATCH T-DERMAL SCH (08:50)
[2017-10-15] MEDS: OLANZapine 5 MG TAB PO SCH (08:50)
[2017-10-15] MEDS: hydrOXYzine HCL 50 MG TAB PO PRN (10:59)
[2017-10-15] MEDS ORDERED: OLAN10TA PO (11:14)
[2017-10-15] MEDS ORDERED: HYDR50TA94 PO (11:14)
[2017-10-15] MEDS ORDERED: OLANZapine 5 MG TAB PO STA (11:15)
[2017-10-15 16:17] VITALS: BP 145/79; PULSE 90; RESP 18; TEMP 98.6; O2SAT 98
[2017-10-15] MEDS: OLANZapine 10 MG TAB PO SCH (20:58)
[2017-10-15] MEDS: REMOVE OLD NICOTINE PATCH T-DERMAL SCH (20:58)
[2017-10-15] MEDS: diphenhydrAMINE HCL 50 MG CAP - HS PRN PO (20:58)
[2017-10-16 06:23] VITALS: BP 158/89; PULSE 88; RESP 18; TEMP 98.2; O2SAT 98
[2017-10-16] MEDS: NICOTINE 21 MG/24 HR PATCH T-DERMAL SCH (09:00)
[2017-10-16] MEDS: OLANZapine 5 MG TAB PO SCH (09:10)
[2017-10-16] MEDS ORDERED: HALOPERIDOL LACTATE 5 MG/ML AMP ONE (11:04)
--- NOTE | 2017-10-16 17:00 | HHI.PYPN ---
Subjective Chief Complaint: Psychosis Remarks Patient was seen and case discussed with nursing. Patient remains acutely psychotic. She continues to be throwing chairs per nursing. Patient says that she was moving them around. She is oriented 1 with bizarre delusions claiming that this is her office in the names various websites including [employer] [place]. She is ready on maximum dose of Zyprexa Mental Status Examination Appearance: Disheveled Consciousness: Alert Orientation: Person Motor Activity: Other (no motor abnormalities noted) Speech: Other (within normal limits for rate, tone and volume) Language: Other (largely incoherent) Fund of Knowledge: Poor Attention and Concentration: Inadequate Memory: Impaired (impaired) Mood: Irritable Affect: Other (childlike) Thought Process & Associations: Loose associations, Disorganized Thought Content: Bizarre thinking Hallucination Type: Other (appears internally stimulated) Delusion Type: Bizarre, Other Suicidal Ideation: No Suicidal Plan: No Suicidal Intention: No Homicidal Ideation: No Homicidal Plan: No Insight: Poor Judgment: Poor Results Vitals/IOs Vital Signs Date Time Temp Pulse Resp B/P (MAP) Pulse Ox O2 Delivery O2 Flow Rate FiO2 10/16/17 06:23 98.2 88 18 158/89 (112) 98 Intake and Output 10/16/17 10/16/17 10/17/17 08:00 16:00 00:00 Intake Total 0 ml 120 ml Balance 0 ml 120 ml Assessment & Plan Problem List: (1) DEMENTIA IN OTH DISEASES CLASSD ELSWHR W BEHAVIORAL DISTURB ICD Codes: F02.81 - DEMENTIA IN OTH DISEASES CLASSD ELSWHR W BEHAVIORAL DISTURB (2) ALZHEIMER'S DISEASE WITH LATE ONSET ICD Codes: G30.1 - ALZHEIMER'S DISEASE WITH LATE ONSET Assessment & Plan Continue current treatment plan Justification for Cont. Inpt. Patient would decompensate in a less restrictive setting Request HC Surrog/Guard Advoc?: Yes Case Martins DO Oct 16, 2017 17:00
[2017-10-16 18:45] VITALS: BP 151/77; PULSE 80; RESP 19; TEMP 98.1; O2SAT 97
[2017-10-16] MEDS: REMOVE OLD NICOTINE PATCH T-DERMAL SCH (21:00)
[2017-10-16] MEDS: hydrOXYzine HCL 50 MG TAB PO PRN (21:10)
[2017-10-16] MEDS: OLANZapine 10 MG TAB PO SCH (21:10)
[2017-10-17 00:15] VITALS: BP 126/62; PULSE 65; RESP 18; O2SAT 97
[2017-10-17] MEDS: diphenhydrAMINE HCL 50 MG CAP - HS PRN PO ×3 (00:15→23:25)
[2017-10-17 03:38] VITALS: BP 145/82; PULSE 73; RESP 20; O2SAT 98
[2017-10-17] MEDS: hydrOXYzine HCL 50 MG TAB PO PRN ×2 (03:38→21:48)
[2017-10-17] MEDS ORDERED: HALOPERIDOL LACTATE 5 MG/ML AMP ONE (05:57)
[2017-10-17 06:00] VITALS: BP 175/81; PULSE 76; RESP 16; TEMP 97.8; O2SAT 100
[2017-10-17] MEDS ORDERED: HALOPERIDOL LACTATE 5 MG/ML AMP IM SCH (06:00)
[2017-10-17] MEDS: OLANZapine 5 MG TAB PO SCH (08:04)
[2017-10-17] MEDS: NICOTINE 21 MG/24 HR PATCH T-DERMAL SCH (09:00)
--- NOTE | 2017-10-17 14:43 | HHI.PYPN ---
Subjective Chief Complaint: Psychosis Remarks Patient was seen and case discussed with nursing. Patient is very psychotic for this interview. She is agitated with autolalia perseverative on her wrist band. She continues with various bizarre delusions Mental Status Examination Appearance: Disheveled Consciousness: Alert Orientation: Person Motor Activity: Other (no motor abnormalities noted) Speech: Other (within normal limits for rate, tone and volume) Language: Other (largely incoherent) Fund of Knowledge: Poor Attention and Concentration: Inadequate Memory: Impaired (impaired) Mood: Irritable Affect: Other (childlike) Thought Process & Associations: Loose associations, Disorganized Thought Content: Bizarre thinking Hallucination Type: Other (appears internally stimulated) Delusion Type: Bizarre, Other Suicidal Ideation: No Suicidal Plan: No Suicidal Intention: No Homicidal Ideation: No Homicidal Plan: No Insight: Poor Judgment: Poor Results Vitals/IOs Vital Signs Date Time Temp Pulse Resp B/P (MAP) Pulse Ox O2 Delivery O2 Flow Rate FiO2 10/17/17 06:00 97.8 76 16 175/81 (112) 100 Intake and Output 10/17/17 10/17/17 10/18/17 08:00 16:00 00:00 Intake Total 1200 ml Balance 1200 ml Assessment & Plan Problem List: (1) DEMENTIA IN OTH DISEASES CLASSD ELSWHR W BEHAVIORAL DISTURB ICD Codes: F02.81 - DEMENTIA IN OTH DISEASES CLASSD ELSWHR W BEHAVIORAL DISTURB (2) ALZHEIMER'S DISEASE WITH LATE ONSET ICD Codes: G30.1 - ALZHEIMER'S DISEASE WITH LATE ONSET Assessment & Plan We will administer Zyprexa 10 mg by mouth 1 Justification for Cont. Inpt. Patient would decompensate in a less restrictive setting Request HC Surrog/Guard Advoc?: Yes Case Martins DO Oct 17, 2017 14:43
[2017-10-17] MEDS ORDERED: OLANZapine 10 MG TAB PO ONE (15:00)
[2017-10-17 18:12] VITALS: BP 149/70; PULSE 68; RESP 18; TEMP 97.9; O2SAT 99
[2017-10-17] MEDS ORDERED: HALOPERIDOL LACTATE 5 MG/ML AMP IM ONE (19:45)
[2017-10-17] MEDS: OLANZapine 10 MG TAB PO SCH (19:52)
[2017-10-17] MEDS: REMOVE OLD NICOTINE PATCH T-DERMAL SCH (21:00)
[2017-10-17 22:30] VITALS: BP 146/72; PULSE 76; RESP 20
[2017-10-18 05:22] VITALS: BP 137/70; PULSE 69; RESP 18; TEMP 97.8; O2SAT 98
[2017-10-18] MEDS: OLANZapine 5 MG TAB PO SCH (08:31)
[2017-10-18] MEDS: hydrOXYzine HCL 50 MG TAB PO PRN (08:31)
[2017-10-18] MEDS: NICOTINE 21 MG/24 HR PATCH T-DERMAL SCH (08:32)
--- NOTE | 2017-10-18 14:31 | HHI.PYPN ---
Subjective Chief Complaint: Psychosis Remarks Patient seen in her room with nurse came, chart reviewed, patient discussed with nurse. Patient is alert diffusely confused continue speaking and marked perseveration and: Sofya mueller Nurse states that patient was more oriented and fluent earlier today. It appears patient did have a good response with the previously given Haldol when necessary. At this time patient is having a total daily dose of 20 mg of Zyprexa daily. I feel this is not very effective at this time. We'll discontinue the Zyprexa and we'll start with Haldol 2 mg by mouth 2 PM and 8 PM Review of Systems Except as stated in HPI: all other systems reviewed are Neg Mental Status Examination Appearance: Disheveled Consciousness: Alert Orientation: Person Motor Activity: Other (no motor abnormalities noted) Speech: Other (within normal limits for rate, tone and volume) Language: Other (largely incoherent) Fund of Knowledge: Poor Attention and Concentration: Inadequate Memory: Impaired (impaired) Mood: Irritable Affect: Other (childlike) Thought Process & Associations: Loose associations, Disorganized Thought Content: Bizarre thinking Hallucination Type: Other (appears internally stimulated) Delusion Type: Bizarre, Other Suicidal Ideation: No Suicidal Plan: No Suicidal Intention: No Homicidal Ideation: No Homicidal Plan: No Insight: Poor Judgment: Poor Results Vitals/IOs Vital Signs Date Time Temp Pulse Resp B/P (MAP) Pulse Ox O2 Delivery O2 Flow Rate FiO2 10/18/17 07:26 18 10/18/17 05:22 97.8 69 137/70 (92) 98 Intake and Output 10/18/17 10/18/17 10/19/17 08:00 16:00 00:00 Intake Total 0 ml Balance 0 ml Assessment & Plan Problem List: (1) DEMENTIA IN OTH DISEASES CLASSD ELSWHR W BEHAVIORAL DISTURB ICD Codes: F02.81 - DEMENTIA IN OTH DISEASES CLASSD ELSWHR W BEHAVIORAL DISTURB (2) ALZHEIMER'S DISEASE WITH LATE ONSET ICD Codes: G30.1 - ALZHEIMER'S DISEASE WITH LATE ONSET Assessment & Plan Estimated LOS: days patient continue psychotic and confused. She medication adjustment above Justification for Cont. Inpt. At this time patient decompensated placement lower level of care Discharge Planning To be determined Request HC Surrog/Guard Advoc?: Yes Landen Menesse MD Oct 18, 2017 14:31
[2017-10-18] MEDS ORDERED: HALOPERIDOL 2 MG TAB PO SCH (15:00)
--- NOTE | 2017-10-18 15:08 | PD.TTN ---
Patient Problems 1. Discharge planning 2. Medication compliance 3. Knowledge deficit 4. Lack of coping skills Progress Toward Goals Provider Present: Dr. Olman Meneses Provider Input: 10/18/17 patient meds adjusted will assess today for improvement 10/11 meds adjusted, more, had many psychotic phases today and over weekend 10/[address] , still observing for med adjustment 10/04/17 patient is a re-admit today Psychiatric Counselors Present: Angela Mix LCSW Psych Therapist Input: 10/18/17 spent a lot of time with patient Wednesday and Wednesday with brother visiting- she appeared much better coherent and aware of placement and talking about the [facility] called and being upset that she needed to be in seclusion, she appears unwilling to go anywhere from this hosptial but home, this morning brother came and discussed again for her to go to Rehab/ skilled nursing and she agreed after while, they will come re-assess her tomorrow 10/11 needs stabilization before being placed, [facility] and other facilities accepted her 10/06 family meeting today to plan placement 10/04/17 new to counselor Group Spec/RT/OT/RAMOS Present: Jamel Alan, OT Group Spec/RT/OT/RAMOS Input: 10/18/17 does not participate 10/11 unable to attend 10/06 was in pet therapy very tearful, appears pre-occupied 10/04/17 new to [facility].Angela Saavedra LCSW Oct 18, 2017 15:08
[2017-10-18] MEDS: REMOVE OLD NICOTINE PATCH T-DERMAL SCH (21:00)
[2017-10-18] MEDS: HALOPERIDOL 2 MG TAB PO SCH (22:01)
[2017-10-19 06:16] VITALS: BP 89/52; PULSE 55; RESP 16; TEMP 97.6; O2SAT 96
[2017-10-19] MEDS: hydrOXYzine HCL 50 MG TAB PO PRN (08:00)
[2017-10-19] MEDS: NICOTINE 21 MG/24 HR PATCH T-DERMAL SCH (08:15)
--- NOTE | 2017-10-19 13:24 | HHI.PYPN ---
Subjective Chief Complaint: Psychosis Remarks Patient seen in dayroom with floor staff, discussed with nurse, chart reviewed. Patient continues markedly disorganized and perseverative with echolalia. Compliant medications Review of Systems Except as stated in HPI: all other systems reviewed are Neg Mental Status Examination Appearance: Disheveled Consciousness: Alert Orientation: Person Motor Activity: Other (no motor abnormalities noted) Speech: Other (within normal limits for rate, tone and volume) Language: Other (largely incoherent) Fund of Knowledge: Poor Attention and Concentration: Inadequate Memory: Impaired (impaired) Mood: Irritable Affect: Other (childlike) Thought Process & Associations: Loose associations, Disorganized Thought Content: Bizarre thinking Hallucination Type: Other (appears internally stimulated) Delusion Type: Bizarre, Other Suicidal Ideation: No Suicidal Plan: No Suicidal Intention: No Homicidal Ideation: No Homicidal Plan: No Insight: Poor Judgment: Poor Results Vitals/IOs Vital Signs Date Time Temp Pulse Resp B/P (MAP) Pulse Ox O2 Delivery O2 Flow Rate FiO2 10/19/17 06:16 97.6 55 16 89/52 (64) 96 Assessment & Plan Problem List: (1) DEMENTIA IN OTH DISEASES CLASSD ELSWHR W BEHAVIORAL DISTURB ICD Codes: F02.81 - DEMENTIA IN OTH DISEASES CLASSD ELSWHR W BEHAVIORAL DISTURB (2) ALZHEIMER'S DISEASE WITH LATE ONSET ICD Codes: G30.1 - ALZHEIMER'S DISEASE WITH LATE ONSET Assessment & Plan Estimated LOS: days patient continues confused demented somewhat labile with perseveration echolalia compliant medications Justification for Cont. Inpt. If this time patient decompensated placed a lower level of care Discharge Planning To be determined Request HC Surrog/Guard Advoc?: Yes Landen Meneses MD Oct 19, 2017 13:24
[2017-10-19] MEDS: HALOPERIDOL 2 MG TAB PO SCH ×2 (13:30→22:13)
[2017-10-19 17:36] VITALS: BP 149/102; PULSE 93; RESP 18; TEMP 98.4; O2SAT 97
[2017-10-19] MEDS: REMOVE OLD NICOTINE PATCH T-DERMAL SCH (20:32)
[2017-10-20 05:46] VITALS: BP 144/63; PULSE 71; RESP 18; TEMP 97.5; O2SAT 98
[2017-10-20 06:00] VITALS: BP 144/63; PULSE 71; RESP 18; TEMP 97.5; O2SAT 97
[2017-10-20] MEDS: NICOTINE 21 MG/24 HR PATCH T-DERMAL SCH (09:00)
--- NOTE | 2017-10-20 09:10 | HHI.DS ---
Psychiatry Discharge Summary Inpatient Psychiatric care?: Yes Advance Directive: No Reason Not Provided: Pt is confuised, unable to assess Mental Health AdvanceDirective: No Health Care Proxy: Yes Admission Admission Date Oct 03, 2017 at 01:27 Admission Diagnosis: (1) ALZHEIMER'S DISEASE WITH LATE ONSET ICD Code: G30.1 - ALZHEIMER'S DISEASE WITH LATE ONSET (2) DEMENTIA IN OTH DISEASES CLASSD ELSWHR W BEHAVIORAL DISTURB ICD Code: F02.81 - DEMENTIA IN OTH DISEASES CLASSD ELSWHR W BEHAVIORAL DISTURB Brief History From Dr. Meneses's H&P: Patient is 72-year-old white female known to me from prior admission 09/02/17 through 09/03/17 visit [id number] pressure seen, a contact with family appears return to her apartment with her children. This episode patient was initially brought to [facility] under [place] act by the [place] [employer] dated 10/02/17 at 1534 hrs. that document reviewed and is essentially stating that Melida appears to be unable to determine if she needs care or treatment by medical secretary Melida's home was a complete mess with Food and feces all over the house. Melida appeared to be talking to people and about things that were not there during my encounter with her Meldia appeared to be unable to care for herself and her home. Melida thought my patrol vehicle was another vehicle and that people were around that were not. Melida's brother arrived on scene to her residence because she was not answering her phone her brother advised that she is not eating and not caring for herself and rambling on about slavery and something to do with "22 seconds" Melida continued to ramble on about various things and people that are not around. Patient seen screen at that facility transferred here under [place] act once medically cleared. Patient seen at the present time in her room with nurse Edith. Patient laying flat on her back to the bed babbling nonsense phrases her eyes wide open she is reaching up over her abdomen with her arms extended straight in the hands grasping and space as if reaching for something. Patient showing no response to my questions. She will grab my hand inside take it close and put it in her hand. Otherwise there is no response to my questions. At this time patient meets criteria for involuntary psychiatric hospitalization on the Porter act I'll do first opinion request second opinion. I feel she does not capacity as for healthcare surrogate and guardian advocate need to contact patient's family get further information helpless with treatment. We will continue hospitalist consult was also. Will refrain from any antipsychotics at this time and further monitor behavior On my examination today, 10/04: Patient seen and examined with nurse. Chart reviewed. Case discussed with nursing staff. On my examination today, patient presents with grossly disorganized thought process. She repeats phrases like "little green, big green." Seeing me, she says "blue, little blue," and I am in fact wearing a blue outfit today. When asked to name a ballpoint pen, she says "pen, black pen." When I ask the location, she says "[place]" and when I ask the date she says "[place]." No real sensible history can be obtained from the patient because of her disorganization. She answers all of my attempts at questions with color phrases ev to those noted above. She appears internally stimulated. She does not verbalize any SI or HI but is unreliable to contract for safety in her present state. She appears fairly disheveled, although I gather her grooming is improved versus admission. I am unable to obtain any past psychiatric, family, chemical dependency or social history from this patient because of her degree of thought disorganization. Tobacco Use In Past 30 Days: No Tobacco Past 30 Days Alcohol Use: Never Hospital Course Patient's hospital course was somewhat notable for her persistent perseveration and: echolalia, she continues confused and disoriented, at times need some redirection but the main behavioral issues are her verbal output. She is compliant with her medications. At this time I feel she has reached maximum benefit of this hospitalization. Prior attempted discharge was unsuccessful due to patient's resistance to leaving the unit. However today we have discussed this with the patient's family. Patient's brother is here to help encourage her to be cooperative. It appears patient has more willing now to follow these directions. Thus patient be discharged today to [facility]. Rx 1 month. Follow-up services through that facility Results Blood Pressure 144 / 63 Vital Signs Date Time Temp Pulse Resp B/P (MAP) Pulse Ox O2 Delivery O2 Flow Rate FiO2 10/20/17 06:00 97.5 71 18 144/63 (90) 97 Please see EMR for full lab results Summary of Procedures None done Imaging Last Impressions Brain MRI 10/06/17 0000 Signed Impressions: Service Date/Time: Friday, October 06, 2017 17:13 - CONCLUSION: 1. Negative examination. Dayo Mercado MD Head CT 10/03/17 0000 Signed Impressions: Service Date/Time: Tuesday, October 03, 2017 19:48 - CONCLUSION: No acute intracranial abnormality is identified. Landen Catherine MD Pending results at discharge: No Medications # of Antipsychotic meds at D/C: 1 Approp Antipsych med options 1 - Minimum of three failed multiple trials of monotherapy. 2 - Documented plan to taper to monotherapy due to previous use of multiple meds OR cross-taper in progress at D/C. 3 - Documentation of augmentation of Clozapine. 4 - Justification other than those listed in allowable values 1-3, document here : Discharge Discharge Date: Oct 20, 2017 Discharge Diagnosis: (1) ALZHEIMER'S DISEASE WITH LATE ONSET Diagnosis: Principal ICD Code: G30.1 - ALZHEIMER'S DISEASE WITH LATE ONSET (2) DEMENTIA IN OTH DISEASES CLASSD ELSWHR W BEHAVIORAL DISTURB Diagnosis: Principal ICD Code: F02.81 - DEMENTIA IN OTH DISEASES CLASSD ELSWHR W BEHAVIORAL DISTURB Pt Condition on Discharge: Stable Discharge Disposition: Discharge to SNF Discharge Instructions Diet Instructions: As Tolerated, No Restrictions Activities you can perform: Regular-No Restrictions Scheduled Appointment: [facility] Discharge Time > 30 minutes Mental Status Examination Appearance: Disheveled Consciousness: Alert Orientation: Person Motor Activity: Other (no motor abnormalities noted) Speech: Other (within normal limits for rate, tone and volume) Language: Other (largely incoherent) Fund of Knowledge: Poor Attention and Concentration: Inadequate Memory: Impaired (impaired) Mood: Irritable Affect: Other (childlike) Thought Process & Associations: Loose associations, Disorganized Thought Content: Bizarre thinking Hallucination Type: Other (appears internally stimulated) Delusion Type: Bizarre, Other Suicidal Ideation: No Suicidal Plan: No Suicidal Intention: No Homicidal Ideation: No Homicidal Plan: No Insight: Poor Judgment: Poor Discharge/Advance Care Plan Health Problems: (1) DEMENTIA IN OTH DISEASES CLASSD ELSWHR W BEHAVIORAL DISTURB (2) ALZHEIMER'S DISEASE WITH LATE ONSET Goals to promote your health * To prevent worsening of your condition and complications * To maintain your health at the optimal level Directions to meet your goals Take your medications as prescribed Follow your dietary instruction Follow activity as directed Keep your appointments as scheduled Take your immunizations and boosters as scheduled If your symptoms worsen call your PCP, if no PCP go to Urgent Care Center or Emergency Room For 08/03 questions related to your inpatient stay or results of tests pending at discharge, please contact Dr. Landen Meneses at Smoking is Dangerous to Your Health. Avoid second hand smoking Landen Meneses MD Oct 20, 2017 09:10
== END 2017-10-20 09:30 | DRG 57 ==
LOC: H260 10-03 01:27 → H250 10-03 15:26
PROVIDERS: ADMIT Psychiatry & Neurology Psychiatry; ATTEND Psychiatry & Neurology Psychiatry
DX: G30.1 Alzheimer's disease with late onset (principal); F02.81 Dementia in other diseases classified elsewhere, unspecified severity, with behavioral disturbance; F23 Brief psychotic disorder; F43.23 Adjustment disorder with mixed anxiety and depressed mood; R48.8 Other symbolic dysfunctions; E87.6 Hypokalemia; Z66 Do not resuscitate; Z88.0 Allergy status to penicillin; Z88.1 Allergy status to other antibiotic agents
CPT/HCPCS: 70450; 70553; 80048; 80053; 81001; 82306; 82607; 83735; 84439; 84443; 85025; 85652; 86038; 93005; 95819; A9579; J1200; J1630; Q0163